=== PATIENT | male | born 2000 | race Caucasian/White ===

== ENCOUNTER 2019-07-06 06:36 | Day surgery (SDC) | payer OTHER, SELFPAY ==
[2019-06-29 15:16] VITALS: BMI 17.7
[2019-07-06] VITALS (18 sets, daily range): BP systolic 111–155; BP diastolic 57–98; PULSE 52–84; RESP 12–16; TEMP 36.1–37.4; O2SAT 95–100; BMI 19.1
[2019-07-06] MEDS: LACTATED RINGERS 1,000 ML 42 ML IV (07:20)
--- NOTE | 2019-07-06 07:33 | PM.PREOP ---
Pre-operative Note Interval Note History & Physical reviewed/Exam performed by Physician: Yes Changes to H&P: No
[2019-07-06] MEDS: CEFAZOLIN 2 GM/100 ML FROZ.PIGGY IV (07:44)
--- NOTE | 2019-07-06 08:12 | SUR.OPER ---
Supine on padded OR bed, head on pillow, arms secured on padded arm boards at <90 degrees abduction, legs uncrossed, safety belt at thigh, tape over blanket over lower legs.
[2019-07-06] MEDS: BUPIVACAINE 0.5% (PF) VIAL 30 ML INJ (08:19)
[2019-07-06] MEDS: LACTATED RINGERS 1,000 ML 100 ML IV (08:55)
--- NOTE | 2019-07-06 09:34 | PM.OP.1 ---
Operative Date/Time/Diagnoses Date of procedure: 07/06/19 Time of procedure: 09:34 Pre-op diagnosis: traumatic right inguinal hernia Post-op diagnosis: same Procedure & Clinicians Procedure: Open right inguinal hernia repair Same procedure as scheduled: Yes Indications: 19-year-old male that was involved skateboarding accident where he sustained a traumatic right inguinal hernia 2 weeks ago. He presents today for open right inguinal hernia repair with mesh. Surgeon: Kael Aguilar Click Yes if Unassisted: Yes Anesthesia Type: General Operative Notes Findings: Fat containing direct right inguinal hernia with extension into the scrotum Prosthetic devices, grafts, tissues, transplants, or devices: proloop mesh Estimated Blood Loss (mL): 10 Procedure in detail: The patient was brought to the operating room and placed supine on the table. Bilateral lower extremity compression devices were applied. General anesthesia was induced and he was intubated with LMA. He was then prepped and draped in usual sterile fashion. Time-out was performed ensure the correct patient procedure necessary equipment within the operating room. The external inguinal ring was identified as well as the anterior superior iliac spine. The incision was made in the crease of the right groin from the pubic tubercle towards the ASIS after infiltration of the skin with 0.25% Bupivicaine. The subcutaneous tissues were divided. The external oblique aponeurosis was identified and opened along the direction of its fibers. As result of his previous trauma the tissues were significantly inflamed and distorted. The cord was bluntly dissected from the external oblique aponeurosis near the pubic tubercle. The cord was completely taken off of the floor and encircled with a Dave drain and swept out of the way for protection. There was a significant traumatic defect within the floor of the inguinal canal with fat extending through it and protruding down into the scrotum. This fat was mobilized and reduced back into the floor. The cord was palpated and the vas deferens and the testicular vessels were identified and protected. The cremasteric fibers of the cord were skeletonized examining for a indirect hernia and none was present. I next selected of medium sized Pro Loop mesh which was anchored to the periosteum of the pubic tubercle using 0 Prolene suture. The inferior edge was then fashioned to the shelving edge of the inguinal ligament using a running 0 Prolene suture. The superior edge of mesh was then anchored in interrupted fashion to the conjoined tendon using 0 Prolene suture. The tails were then wrapped around the cord and the internal ring was recreated loosely so that the cord remained mobile. The tails of the mesh were then tucked under the external oblique aponeurosis. The wound was irrigated and found to be hemostatic. The external oblique was then closed in a running fashion using 3 0 Vicryl suture. The subcutaneous tissues were reapproximated using 4 O Vicryl the skin was closed with the running 4 0 Monocryl followed by the application of Dermabond. At the end of the operation ensure that the the both testicles were within the scrotum. Patient emerged from general anesthesia was awakened extubated and transferred to the postoperative care unit in stable condition Complications: none Condition: stable Disposition: PACU
[2019-07-06] MEDS: HYDROMORPHONE 2 MG INJ 0.5 MG IV ×4 (09:51→10:11)
[2019-07-06] MEDS: fentaNYL 100 MCG/2 ML INJ 50 MCG IV ×2 (10:17→10:25)
[2019-07-06] MEDS: OXYCODONE/ACETAMINOPHEN 5/325 TABLET 1 TAB PO ×2 (10:18→11:08)
--- NOTE | 2019-07-06 10:26 | SUR.PHASEI ---
report given to Hiram Roberts RN
--- NOTE | 2019-07-06 11:45 | SUR.PHASEII ---
[facility]. Able to void. Reported pain 6/10.
--- NOTE | 2019-07-06 15:22 | SUR.PHASEII ---
[id number] Pt's mom found assisting patient to dress. Requested to discharge. Pt stated pain improved after void. Discharge instructions reviewed.
== END 2019-07-06 12:00 | disposition home or self-care (01) ==
PROVIDERS: PCP Family Medicine; Visit Provider Surgery
PROC: (CPT 49505; principal; 2019-07-06 07:45)
DX: K40.90 Unilateral inguinal hernia, without obstruction or gangrene, not specified as recurrent (principal)
CPT/HCPCS: 49505; C1781; J0690; J1100; J1170; J1885; J2405; J2704; J3010

== ENCOUNTER 2019-07-10 23:32 | Emergency (ER) | payer OTHER, SELFPAY ==
[2019-07-10 23:44] VITALS: BP 142/109; PULSE 84; RESP 24; TEMP 37.1; O2SAT 100
--- NOTE | 2019-07-10 23:58 | DI.RAD.S_ITS ---
PROCEDURE: XR ABDOMEN MIN 2V INDICATIONS: no BM x 5 days, s/p inguinal hernia repair TECHNIQUE: 2 views of the abdomen were acquired. COMPARISON: [facility], CT, CT ABDOMEN PELVIS W CON, 07/11/2019, 2:18. FINDINGS: Surgical changes and devices: None. Bowel: No pneumoperitoneum. A prominent amount of stool can be seen within the colon. Scattered air-fluid levels are seen, without pathologic or differential air-fluid levels. Soft tissues: No masses; visualized solid organ contours appear normal in size. No suspicious abdominal calcifications. Bones: No suspicious bony abnormalities. IMPRESSION: A prominent amount of stool is seen within the colon. This is consistent with the given clinical history of constipation. Scattered air-fluid levels are seen, without pathologic or differential air-fluid levels to suggest a small bowel obstruction. Dictated by: Vimal Hernandez M.D. on 07/11/2019 at 7:21 Approved by: Vimal Hernandez M.D. on 07/11/2019 at 7:22
[2019-07-11 00:46] VITALS: BP 137/105; PULSE 94; RESP 20; O2SAT 95
--- NOTE | 2019-07-11 00:57 | ED_ITS ---
HPI - Abdominal Pain General Chief Complaint: Abdominal Pain Stated Complaint: no bowel movement since inguinal hernia ashley garcia Time Seen by Provider: 07/10/19 23:57 Source: patient Mode of arrival: ambulatory Limitations: no limitations History of Present Illness HPI narrative: 19-year-old male comes to the emergency department with complaint of increasing abdominal pain. Patient had right inguinal hernia repair after traumatic hernia. His surgery was on 07/06. Patient states that he was having pain pretty much immediately after his surgery which has been increasing. He has not had fevers or chills. He has not been vomiting or felt nauseated. He has not had a bowel movement but he has been passing flatus. He denies any issues with urination. There has not appreciate signs infection at his incision. He was taking oxycodone which he has run out of. Sounds like he just started taking some MiraLax in the last 24 hours to help him have a bowel movement. He is otherwise healthy, had a prior wrist surgery but denies any other surgical history. No tobacco, no alcohol no illicit per patient. He is accompanied by his mother at bedside Related Data Previous Rx's Medication Instructions Recorded ibuprofen 600 mg PO Q6H PRN #60 cap 07/06/19 oxycodone 5 mg PO Q4-6H PRN #30 cap 07/06/19 ondansetron HCl 4 mg tablet 4 mg PO Q8-12H PRN #10 tab 07/07/19 meloxicam [Mobic] 7.5 mg PO DAILY #14 tab 07/11/19 oxycodone 5 mg PO Q4-6H PRN #10 tab 07/11/19 polyethylene glycol 3350 [Miralax] 8.5 gram PO DAILY PRN #119 gram 07/11/19 Allergies Allergy/AdvReac Type Severity Reaction Status Date / Time No Known Drug Allergies Allergy Verified 07/06/19 07:13 Review of Systems Review of Systems ROS Unobtainable: All systems reviewed & are unremarkable except as noted in HPI and below Constitutional Constitutional: Denies chills, Denies fever(s) and Denies lethargy Cardiovascular Cardiovascular: Denies chest pain and Denies dyspnea Respiratory Respiratory: Denies dyspnea Gastrointestinal Gastrointestinal: Reports abdominal pain, Reports change in bowel habits, Reports constipation, Denies excessive flatus (patient is continuing to have flatus), Denies diarrhea, Denies nausea and Denies vomiting Genitourinary Genitourinary: Denies hematuria, Denies flank pain, Reports scrotal swelling, Reports testicular pain, Denies urinary frequency, Denies urinary hesitancy, Denies urinary incontinence and Denies urinary urgency Musculoskeletal Musculoskeletal: Denies back pain Integumentary/Breasts Skin/Breast: Reports unusual bruising (no increasing bruising since surgery) [facility] Medical History Anxiety (Acute) Chest pain (Acute) Constipation (Acute) Cough (Acute) Depression (Acute) Former smoker (Acute) Groin injury (Acute ~06/2019) Heart murmur (Acute) History of migraine (Acute) Nausea (Acute) Surgical History History of surgery on wrist (Acute) Family History Mother Cancer History of heart disease Social History household members: none Smoking Status: Never smoker Social History household members: none Smoking Status: Never smoker Exam Narrative Exam Narrative: GENERAL: Alert and oriented x three, thin, well-appearing male in moderate distress. Patient has trouble finding a position of comfort. HEENT: Head normocephalic, atraumatic, EOMI, pupils reactive, face symmetric, moist mucous membranes NECK: Supple, full range of motion CARDIOVASCULAR: Regular rate and rhythm without murmurs, rubs or gallops. RESPIRATORY: Breath sounds equal bilaterally, no wheezes rales or rhonchi. ABDOMEN: Soft, generalized tenderness. Patient is not significantly distended but does have guarding. Normoactive bowel sounds all 4 quadrants. No rigidity, no mass : No CVA tenderness. Male: normal external examination except for suprapubic swelling, patient has ecchymosis of the suprapubic area and bilateral testicles, no penile discharge or lesions, penis is non-tender, left testicle is non- tender, right testicle is tender and appears slightly more swollen, cremasteric reflex intact, no inguinal hernias noted, incision appears clean, dry and intact. No erythema, no drainage. EXTREMITIES: Normal range of motion, no clubbing or edema. Neurovascularly intact NEUROLOGICAL: Cranial nerves II through XII grossly intact. Moving all extremities normally. SKIN: Warm, dry, no petechiae, no rashes or lesions. Initial Vital Signs Initial Vital Signs: Vital Signs Temperature 98.7 F 07/10/19 23:44 Pulse Rate 84 07/10/19 23:44 Respiratory Rate 24 07/10/19 23:44 Blood Pressure 142/109 H 07/10/19 23:44 Pulse Oximetry 100 07/10/19 23:44 Course Orders Ordered: ED Orders 07/10/19 23:58 XR abdomen min 2V Stat 07/11/19 01:09 CT abdomen pelvis w con Stat 07/11/19 01:25 Complete Blood Count AUTO DIFF Stat Comprehensive Metabolic Panel Stat Lipase Stat Discontinued Medications Hydromorphone HCl (Dilaudid) 1 mg IV NOW ONE Stop: 07/11/19 01:36 Last Admin: 07/11/19 01:54 Dose: 1 mg Documented by: HARITHA Hydromorphone HCl (Dilaudid) 1 mg IV NOW ONE Stop: 07/11/19 02:11 Last Admin: 07/11/19 02:14 Dose: 1 mg Documented by: MONTY Hydromorphone HCl (Dilaudid) 1 mg IV NOW ONE Stop: 07/11/19 04:22 Last Admin: 07/11/19 04:31 Dose: 1 mg Documented by: HARITHA Sodium Chloride (Normal Saline 0.9%) 1,000 mls @ 1,000 mls/hr IV BOLUS ONE Stop: 07/11/19 02:08 Last Infusion: 07/11/19 02:55 Dose: 0 mls/hr Documented by: Admin: 07/11/19 01:30 Dose: 1,000 mls/hr Documented by: HARITHA Sodium Chloride (Normal Saline 0.9%) 1,000 mls @ 150 mls/hr IV CONT LOIDA Last Infusion: 07/11/19 05:30 Dose: 0 mls/hr Documented by: Infusion: 07/11/19 04:28 Dose: 0 mls/hr Documented by: Admin: 07/11/19 03:05 Dose: 150 mls/hr Documented by: HARITHA Ketorolac Tromethamine (Toradol) 30 mg IV NOW ONE Stop: 07/11/19 01:10 Last Admin: 07/11/19 01:30 Dose: 30 mg Documented by: HARITHA Lorazepam (Ativan) 1 mg IV NOW ONE Stop: 07/11/19 02:33 Last Admin: 07/11/19 02:45 Dose: 1 mg Documented by: HARITHA Magnesium Citrate (Magnesium Citrate) 300 ml PO NOW ONE Stop: 07/11/19 04:22 Last Admin: 07/11/19 04:31 Dose: 300 ml Documented by: HARITHA Oxycodone/Acetaminophen (Percocet 5/325) 1 tab PO NOW ONE Stop: 07/11/19 05:34 Last Admin: 07/11/19 05:42 Dose: 1 tab Documented by: MONTY Sodium Biphosphate/Sodium Phosphate (Fleet Enema) 1 each DC NOW ONE Stop: 07/11/19 04:22 Last Admin: 07/11/19 04:28 Dose: 1 each Documented by: HARITHA Vital Signs Vital signs: Vital Signs - 8 hr 07/10/19 23:44 07/11/19 00:46 07/11/19 01:32 Temperature 98.7 F Pulse Rate 84 94 H 67 Respiratory Rate 24 20 20 Blood Pressure 142/109 H Blood Pressure [Left Arm] 137/105 H 142/67 H Pulse Oximetry 100 95 94 07/11/19 02:52 07/11/19 04:10 07/11/19 05:50 Temperature 98.7 F Pulse Rate 63 69 63 Respiratory Rate 21 18 18 Blood Pressure 145/79 H Blood Pressure [Left Arm] 147/93 H 146/81 H Pulse Oximetry 100 100 95 MDM - Abdominal Pain Lab Data Attestation: I reviewed the patient's lab results. Result diagrams: 07/11/19 01:25 07/11/19 01:25 Labs: Lab Results 07/11/19 07/11/19 Range/Units 01:25 01:25 WBC 9.1 (4.5-11.0) X10^3/uL RBC 5.16 (4.5-5.9) X10^6/uL Hgb 15.8 (13.5-17.5) g/dL Hct 44.4 (41-53) % MCV 86.0 (80-100) fL MCH 30.6 (26-34) PG MCHC 35.6 (30-36) % RDW 12.7 (11.6-14.8) % Plt Count 329 (150-400) X10^3/uL Neut % (Auto) 65.4 (50-75) % Lymph % (Auto) 22.2 L (25-40) % [place] % (Auto) 9.3 (3-14) % Eos % (Auto) 2.8 (2-4) % Baso % (Auto) 0.3 (0-2) % Neut # (Auto) 5900 (5810-0822) /uL Lymph # (Auto) 2000 (6469-3284) /uL [place] # (Auto) 800 (0-900) /uL Eos # (Auto) 300 (0-450) /uL Baso # (Auto) 0 (0-100) /uL Sodium 140 (137-145) mmol/L Potassium 3.7 (3.4-5.1) mmol/L Chloride 101 (98-107) mmol/L Carbon Dioxide 29 (22-32) mmol/L BUN 18 (9-20) mg/dL Creatinine 0.70 (0.66-1.25) mg/dL Estimated GFR > 60.0 (>60) mL/min BUN/Creatinine Ratio 25.7 H (6-22) Glucose 99 (70-100) mg/dL Calcium 10.0 (8.4-10.2) mg/dL Total Bilirubin 1.1 (0.2-1.3) mg/dL AST 29 (17-59) IU/L ALT 15 L (21-72) IU/L Alkaline Phosphatase 66 (38-126) U/L Total Protein 8.3 H (6.3-8.2) g/dL Albumin 4.8 (3.5-5.0) g/dL Globulin 3.5 (1.7-4.1) g/dL Albumin/Globulin Ratio 1.4 (1.0-2.8) Lipase 57 (23-300) U/L Point of care testing: Urine Dip Bedside Urine Glucose Negative Bedside Urine Bilirubin - Negative Bedside Urine Ketone - Negative Urine Specific [place] 1.010 Bedside Urine Occult Blood - Negative Bedside Urine pH 8.5 Bedside Urine Protein +/- 15 Bedside Urine Urobilinogen +/- 1mg Bedside Urine Nitrite - Negative Bedside Urine Leukocytes - Negative Esterase Imaging Data Abdominal x-ray: My impression: no free air noted, air fluid levels throughout, patient appears to have stool on left side and vault. CT scan - abdomen: Radiologist's impression: Large stool burden in the descending and sigmoid colon with fluid-filled transverse and descending colon. Bowel obstruction. No pneumatosis, free air or fluid bladder is thin-walled adequately distended. Amount of air inflammation in the right inguinal canal consistent with recent surgery. Mildly prominent right inguinal lymph nodes. MDM Narrative Medical decision making narrative: Patient is quite uncomfortable on exam. He did quite bit of abdominal pain postsurgically immediately and states that it has not improved and worsened somewhat. He has had no bowel movements in the past 5 days since surgery. He is passing gas he has not been actively vomiting patient did run out of oxycodone in the last 24 hours and has not been able to control his pain at home. On x-ray he does appear to have air-fluid levels concerning for possible obstruction, he has quite a bit of ecchymosis of the testicles but they are not actively tender is abdominal. May be constipation but fine for imaging was CT to evaluate for obstruction versus constipation or infection in the abdomen. Patient given Toradol for pain and re-evaluated. No improvement, given dilaudid and ativan with improvement in pain. Patient had 800cc out immediately after CT, bladder scan after post void is, 325cc. Patient was able to urinate an additional 500cc later. CT find a large amount of stool, discussed with Dr. Aguilar who performed patient surgery on July 06. We discussed patient eat some additional bowel care, plan for enema in the department. He is currently on Colace and senna. Will add MiraLax daily. Discussed giving him a limited script of oxycodone although this will not help him with constipation. Bottle of magnesium citrate. He has been taking naproxen with minimal improvement and discussed adding Mobic instead. Plan for short-term follow-up. Discussed with patient and mother at bedside, patient is willing to try the enema, discussed medication changes and signs and symptoms to watch for emergently. We also discussed limiting his narcotic intake will help decrease his constipation which will help improve his abdominal pain. patient and mother both expressed understanding. Discharge Plan Departure Patient Disposition: Home Clinical Impression: S/P inguinal hernia repair Constipation Qualifiers: Constipation type: drug induced constipation Qualified Code(s): K59.03 - Drug induced constipation Abdominal pain Qualifiers: Abdominal location: unspecified location Qualified Code(s): R10.9 - Unspecified abdominal pain Discharge Date/Time: 07/11/19 05:51 Instructions: DI for Constipation Activity Restrictions/Additional Instructions: Follow up with Dr. Aguilar this week, call Friday to set up follow up. Continue senna and dulcolax as prescribed. Take miralax once daily. Make sure you are hydrating daily and drinking at least 8-10 glasses of water daily. Take magnesium citrate at home, start with 1/2 bottle and waiting 3-4 hours, if no change drink the second half of the the bottle. Continue with Tylenol, you may take 1000mg every 8 hours as needed for pain. Take mobic 7.5mg every 12 hours as needed for pain. Do not take ibuprofen, naproxen or NSAIDs with this medication. You may take Tylenol with this medication. Take oxycodone for breakthrough pain as needed. This medication will make your constipation worse. Return for fevers greater than 100.4F, persistent vomiting, if you are not having bowel movements and not passing gas, worsening pain, inability to urinate, passing out, new chest pain, shortness of breath or other new or concerning symptoms. Prescriptions: New meloxicam [Mobic] 7.5 mg tablet 7.5 mg PO DAILY Qty: 14 RF: 0 oxycodone 5 mg tablet 5 mg PO Q4-6H PRN (Reason: pain) Qty: 10 RF: 0 polyethylene glycol 3350 [Miralax] 17 gram/dose powder 8.5 gram PO DAILY PRN (Reason: constipation) Qty: 119 RF: 0 No Action ondansetron HCl [Zofran] 4 mg tablet 4 mg PO Q8-12H PRN (Reason: Nausea) Qty: 10 RF: 0 ibuprofen 200 mg capsule 600 mg PO Q6H PRN (Reason: pain) Qty: 60 RF: 0 oxycodone 5 mg capsule 5 mg PO Q4-6H PRN (Reason: pain) Qty: 30 RF: 0 Referrals: Kael Aguilar MD [Physician] - Ariana Billings DO [Primary Care Provider] -
--- NOTE | 2019-07-11 01:09 | DI.CT.S_ITS ---
PROCEDURE: CT ABDOMEN PELVIS W CON INDICATIONS: no BM x 5 days, s/p inguinal hernia, + flatus, airfluid leve TECHNIQUE: After the administration of intravenous contrast, 5 mm thick sections acquired from the diaphragm to the symphysis. 5 mm coronal and sagittal reformats were acquired. For radiation dose reduction, the following was used: automated exposure control, adjustment of mA and/or kV according to patient size. COMPARISON: [facility], CR, XR ABDOMEN MIN 2V, 07/11/2019, 0:25. FINDINGS: Image quality: There is streak artifact seen. ABDOMEN: Lung bases: Lung bases are clear. Heart size is normal. Solid organs: Liver is normal in size and enhancement. Gallbladder wall is not thickened. Biliary system is non dilated. Pancreas enhances normally. Spleen is normal in size and enhancement. No adrenal nodules. Kidneys demonstrate normal size and enhancement, without hydronephrosis. A 1 mm nonobstructing stone can be seen within the left kidney, as on series 2 image 29. Peritoneum and bowel: There is a prominent amount of stool seen within the colon. No dilated loops of small bowel are seen. No free air or significant free fluid can be seen. Incidental note is made of a normal-appearing appendix. Nodes and vessels: No retroperitoneal or mesenteric adenopathy by size criteria. Aorta and inferior vena cava are normal in size. Miscellaneous: No ventral hernias. PELVIS: Genitourinary: Bladder wall thickness is normal. The urinary bladder is prominent in size. Miscellaneous: There is soft tissue swelling and minimal gas is seen involving the anterior wall of the pelvis. Swelling is seen along the right inguinal canal. Bones: No suspicious bony lesions. No vertebral body compression fractures. IMPRESSION: There is a prominent amount of stool seen within the colon, which is consistent with the given clinical history of constipation. Recent postoperative change of the anterior pelvis. There is swelling seen along the right inguinal canal. Please correlate with patient history. Incidental note is made of: 1 mm nonobstructing left kidney stone Normal appendix Note: No significant discrepancy from the preliminary report. Dictated by: Vimal Hernandez M.D. on 07/11/2019 at 7:15 Approved by: Vimal Hernandez M.D. on 07/11/2019 at 7:19
[2019-07-11] MEDS: SODIUM CHLORIDE 0.9% 1,000 ML 1000 ML IV (01:30)
[2019-07-11] MEDS: KETOROLAC 60 MG/2 ML VIAL 30 MG IV (01:30)
[2019-07-11 01:32] VITALS: BP 142/67; PULSE 67; RESP 20; O2SAT 94
[2019-07-11 01:43] LABS: Add Manual Diff / Slide Review NO; Basophils Absolute Auto 0 /uL (0-100); Basophils Percent Auto 0.3 % (0-2); Eosinophils Absolute Auto 300 /uL (0-450); Eosinophils Percent Auto 2.8 % (2-4); Hematocrit 44.4 % (41-53); Hemoglobin 15.8 g/dL (13.5-17.5); Lymphocytes Absolute Auto 2000 /uL (1100-4500); Lymphocytes Percent Auto 22.2 % (25-40); Mean Corpuscular HGB Conc 35.6 % (30-36); Mean Corpuscular Hemoglobin 30.6 PG (26-34); Monocytes Absolute Auto 800 /uL (0-900); Monocytes Percent Auto 9.3 % (3-14); Neutrophils Absolute Auto 5900 /uL (1500-7000); Neutrophils Percent Auto 65.4 % (50-75); Platelet Count 329 X10^3/uL (150-400); Red Blood Cell Count 5.16 X10^6/uL (4.5-5.9); Red Cell Distribution Width 12.7 % (11.6-14.8); White Blood Cell Count 9.1 X10^3/uL (4.5-11.0)
[2019-07-11 01:45] LABS: Alanine Aminotransferase 15 IU/L (21-72); Albumin 4.8 g/dL (3.5-5.0); Albumin Globulin Ratio 1.4 (1.0-2.8); Alkaline Phosphatase 66 U/L (38-126); Aspartate Aminotransferase 29 IU/L (17-59); BUN Creatinine Ratio 25.7 (6-22); Bilirubin Total 1.1 mg/dL (0.2-1.3); Blood Urea Nitrogen 18 mg/dL (9-20); Carbon Dioxide 29 mmol/L (22-32); Chloride 101 mmol/L (98-107); Estimated Glomerular Filt Rate > 60.0 mL/min (>60); Globulin 3.5 g/dL (1.7-4.1); Glucose 99 mg/dL (70-100); HEMOLYSIS < 15 (0-50); Lipase 57 U/L (23-300); Potassium 3.7 mmol/L (3.4-5.1); Sodium 140 mmol/L (137-145); Total Protein 8.3 g/dL (6.3-8.2)
[2019-07-11] MEDS: HYDROMORPHONE 1 MG INJ IV ×3 (01:54→04:31)
--- NOTE | 2019-07-11 02:19 | PC.NURSE ---
Pt curled on side clutching abd, rates pain 9/10. additional 1 mg dilaudid given IV per order. Pt now to CT.
[2019-07-11] MEDS: LORazepam 2 MG/ML INJ 1 MG IV (02:45)
[2019-07-11 02:52] VITALS: BP 147/93; PULSE 63; RESP 21; O2SAT 100
[2019-07-11] MEDS: SODIUM CHLORIDE 0.9% 1,000 ML 150 ML IV (03:05)
[2019-07-11 04:10] VITALS: BP 146/81; PULSE 69; RESP 18; O2SAT 100
[2019-07-11] MEDS: FLEETS ENEMA 1 EACH PR (04:28)
[2019-07-11] MEDS: MAGNESIUM CITRATE 300 ML SOLUTION PO (04:31)
[2019-07-11] MEDS: OXYCODONE/ACETAMINOPHEN 5/325 TABLET 1 TAB PO (05:42)
[2019-07-11 05:50] VITALS: BP 145/79; PULSE 63; RESP 18; TEMP 37.1; O2SAT 95
== END 2019-07-11 05:51 | disposition home or self-care (01) ==
PROVIDERS: Emergency Provider Emergency Medicine; PCP Family Medicine
DX: Z98.890 Other specified postprocedural states (principal); R10.9 Unspecified abdominal pain
CPT/HCPCS: 36591; 51798; 74019; 74177; 80053; 81003; 83690; 85025; 96361; 96374; 96375; 96376; 99285; J1170; J1885; J2060; Q9967

== ENCOUNTER 2019-07-16 19:22 | Inpatient (IN) | payer OTHER, SELFPAY ==
[2019-07-16 19:25] VITALS: BP 154/89; PULSE 78; RESP 20; TEMP 36.9; O2SAT 98
--- NOTE | 2019-07-16 19:36 | DI.US.S_ITS ---
PROCEDURE: US SCROTUM INDICATIONS: LEFT SCROTAL/TESTICULAR PAIN TECHNIQUE: Real-time scanning was performed of the scrotum and testicles, with image documentation. Color and pulse Doppler interrogation was performed of both testicles. COMPARISON: None. FINDINGS: There is bilateral testicular hyperemia. Right: Testicle is normal in size at 5.3 x 3.2 x 2.8 cm, and homogenous in echotexture. Epididymis is normal in overall size and morphology. No hydrocele or varicoceles. Overlying scrotal skin is normal in thickness. Left: Testicle is normal in size at 5.0 x 3.7 x 2.6 cm, and homogeneous in echotexture. Epididymis is heterogeneous. No hydrocele or varicoceles. Overlying scrotal skin is normal in thickness. Doppler: Color and pulse Doppler demonstrate normal and symmetric arterial flow in both testicles. Multiple nonspecific right inguinal fluid collections, measuring 2.7 x 2.0 by 0.7 cm (simple appearance), and 2.4 x 1.9 x 1.5 cm complex fluid collection or hematoma for which cannot exclude superimposed infection/abscess. IMPRESSION: Hyperemic appearance of both testicles raise the possibility of orchitis however technically indeterminate. Recommend correlation with urinalysis data. Nonspecific heterogeneous appearance of the left epididymal head which could reflect epididymitis although nonspecific finding. Multiple right inguinal simple and complex fluid collections with differential as above. Please correlate clinically Dictated by: Chito Ely M.D. on 07/16/2019 at 21:33 Approved by: Chito Ely M.D. on 07/16/2019 at 21:36
--- NOTE | 2019-07-16 20:38 | ED.MALEGU ---
HPI - Male Genitourinary General Chief complaint: Urogenital-Male Stated complaint: hernia surgery,states pain in left nut Time Seen by Provider: 07/16/19 20:36 Source: patient and family Mode of arrival: ambulatory Limitations: no limitations History of Present Illness HPI Narrative: 19M non smoker with benign medical history presents with family member and the chief complaint of a severe, sudden onset left testicular pain in the absence of injury which started today at noon. His pain is worse with motion and improves with rest. He has had subjective fever and chills. He has had nausea but no vomiting. He is not dizzy nor weak or lightheaded. His oral pain meds from a recent surgery are not working. He is sexually active but has not been for the past few months. He denies dysuria, frequency or urgency. July 06 he had an open repair of a right inguinal hernia. He has been having bowel movements and passing gas without difficulty. MD Complaint: testicle pain Onset (ago): hour(s) Duration: constant Location: left testicle Severity: moderate Quality: aching Relieving factors: rest Exacerbating factors: movement Associated symptoms: Reports nausea/vomiting Related Data Sexually active: Yes Previous Rx's Medication Instructions Recorded ibuprofen 600 mg PO Q6H PRN #60 cap 07/06/19 oxycodone 5 mg PO Q4-6H PRN #30 cap 07/06/19 ondansetron HCl 4 mg tablet 4 mg PO Q8-12H PRN #10 tab 07/07/19 meloxicam [Mobic] 7.5 mg PO DAILY #14 tab 07/11/19 polyethylene glycol 3350 [Miralax] 8.5 gram PO DAILY PRN #119 gram 07/11/19 Allergies Allergy/AdvReac Type Severity Reaction Status Date / Time No Known Drug Allergies Allergy Verified 07/06/19 07:13 Review of Systems Constitutional Constitutional: Reports chills, Denies fatigue, Reports fever(s), Denies frequent falls, Denies lethargy and Denies weakness Eyes Eyes: Denies change in vision, Denies eye discharge, Denies irritation and Denies loss of vision ENT Ears, Nose, Mouth, and Throat: Denies change in voice, Denies dizziness, Denies neck pain, Denies sore throat and Denies throat swelling Cardiovascular Cardiovascular: Denies chest pain, Denies irregular heart rhythm, Denies lightheadedness, Denies palpitations, Denies dyspnea, Denies dyspnea on exertion and Denies orthopnea Respiratory Respiratory: Denies cough, Denies dyspnea, Denies dyspnea on exertion and Denies wheezing Gastrointestinal Gastrointestinal: Denies abdominal pain, Denies change in bowel habits, Denies diarrhea, Denies nausea and Denies vomiting Genitourinary Genitourinary: Denies hematuria, Reports genital pain, Denies flank pain, Denies urinary incontinence and Denies urinary urgency Musculoskeletal Musculoskeletal: Denies back pain, Denies muscle weakness, Denies neck pain, Denies numbness and Denies tingling Integumentary/Breasts Skin/Breast: Denies pruritus, Denies erythema, Denies rash and Denies wounds Neurologic Neurologic: Denies behavioral changes, Denies confusion, Denies dizziness, Denies frequent falls, Denies loss of vision, Denies numbness, Denies tingling and Denies weakness Psychiatric Psychiatric: Denies anxiety, Denies behavioral changes, Denies confusion, Denies depression, Denies homicidal ideation and Denies suicidal ideation Endocrine Endocrine: Denies fatigue, Denies flushing and Denies palpitations Hematologic/Lymphatic Hematologic/Lymphatic: Denies easy bruising Allergic/Immunologic Allergic/Immunologic: Denies urticaria, Denies throat swelling and Denies wheezing PFSH Family History Mother Cancer History of heart disease Social History household members: none Smoking Status: Never smoker Exam Narrative Exam Narrative: GENERAL: [19] year old patient appears stated age. Well-nourished, well-developed patient, in moderate distress. HEAD: Atraumatic. Normocephalic. EYES: Pupils equal round and reactive. Extraocular motions intact. No scleral icterus. No injection or drainage. ENT: Nose without bleeding, purulent drainage. Throat without erythema, tonsillar hypertrophy or exudate. Airway patent. NECK: Trachea midline. Non tender CARDIOVASCULAR: Regular rate and rhythm without murmurs, gallops, or rubs. RESPIRATORY: Clear to auscultation. Breath sounds equal bilaterally. No wheezes, rales, or rhonchi. GASTROINTESTINAL: Abdomen soft, mild tenderness in the right inguinal region, incision is clean, dry and intact, : Severe left testicular pain, no swelling, redness, induration or any external manifestation injury or illness EXTREMITIES: No edema or joint tenderness. BACK: Nontender without deformity or crepitance. No flank tenderness. NEURO: AOx3. SKIN: No rash or erythema of visible areas Initial Vital Signs Initial Vital Signs: Vital Signs Temperature 98.4 F 07/16/19 19:25 Pulse Rate 78 07/16/19 19:25 Respiratory Rate 20 07/16/19 19:25 Blood Pressure 154/89 H 07/16/19 19:25 Pulse Oximetry 98 07/16/19 19:25 Course Orders Ordered: ED Orders 07/16/19 19:36 US scrotum Stat 07/16/19 21:36 CT abdomen pelvis w con Stat 07/16/19 21:50 Basic Metabolic Panel Stat Complete Blood Count AUTO DIFF Stat Lactate (Lactic Acid) Stat 07/16/19 22:00 Blood Culture Stat 07/17/19 02:48 Urine Chlamydia Gonorrhea PCR Stat Acetaminophen (Tylenol) 650 mg PO Q6HR PRN PRN Reason: As Needed for Fever/Mild Pain Al Hydrox/Mg Hydrox/Simethicone (Maalox Plus) 30 ml PO Q6HR PRN PRN Reason: Dyspepsia Bisacodyl (Dulcolax) 10 mg NC DAILY PRN PRN Reason: Constipation Calcium Carbonate (Tums) 1,000 mg PO Q4HR PRN PRN Reason: Dyspepsia Docusate Sodium (Colace) 100 mg PO BID LOIDA Hydromorphone HCl (Dilaudid) 1 mg IV Q4H PRN PRN Reason: Pain, Severe (7-10) Hydromorphone HCl (Dilaudid) 0.5 mg IV Q4H PRN PRN Reason: Pain, Moderate (4-6) Levofloxacin (Levaquin) 500 mg in 100 mls @ 100 mls/hr IV Q24H [facility] Ceftriaxone Sodium/Dextrose (Rocephin) 2 gm in 50 mls @ 100 mls/hr IV Q24H [facility] Ketorolac Tromethamine (Toradol) 30 mg IV Q6HR [facility] Stop: 07/22/19 03:40 Naloxone HCl (Narcan) 0.2 mg IV Q2MIN PRN PRN Reason: Opiate Reversal Ondansetron HCl (Zofran) 4 mg IV Q4HR PRN PRN Reason: Nausea And Vomiting Last Admin: 07/16/19 21:48 Dose: 4 mg Documented by: TAVO Ondansetron HCl (Zofran) 4 mg IV Q8HR PRN PRN Reason: Nausea And Vomiting Polyethylene Glycol (Miralax) 8.5 gm PO DAILY PRN PRN Reason: constipation Sennosides (Senna) 17.2 mg PO BEDTIME LOIDA Discontinued Medications Hydromorphone HCl (Dilaudid) 1 mg IV NOW ONE Stop: 07/16/19 21:36 Last Admin: 07/16/19 21:48 Dose: 1 mg Documented by: TAVO Hydromorphone HCl (Dilaudid) 1 mg IV NOW ONE Stop: 07/16/19 22:36 Last Admin: 07/16/19 22:39 Dose: 1 mg Documented by: TAVO Hydromorphone HCl (Dilaudid) 1 mg IV NOW ONE Stop: 07/16/19 23:55 Last Admin: 07/17/19 00:20 Dose: 1 mg Documented by: TAVO Hydromorphone HCl (Dilaudid) 1 mg IV NOW ONE Stop: 07/17/19 01:24 Last Admin: 07/17/19 01:28 Dose: 1 mg Documented by: TAVO Hydromorphone HCl (Dilaudid) 0.5 mg IV Q6HR PRN PRN Reason: Pain, Moderate (4-6) Hydromorphone HCl (Dilaudid) 1 mg IV Q6HR PRN PRN Reason: Pain, Severe (7-10) Sodium Chloride (Normal Saline 0.9%) 1,000 mls @ 1,000 mls/hr IV BOLUS ONE Stop: 07/16/19 22:34 Last Infusion: 07/16/19 23:17 Dose: 0 mls/hr Documented by: Admin: 07/16/19 21:48 Dose: 1,000 mls/hr Documented by: TAVO Levofloxacin (Levaquin) 500 mg in 100 mls @ 100 mls/hr IV NOW ONE Stop: 07/16/19 22:34 Last Infusion: 07/16/19 23:06 Dose: 0 mls/hr Documented by: Admin: 07/16/19 21:48 Dose: 100 mls/hr Documented by: KBROTEM Influenza Virus Vaccine (Flu Vaccine) 0.5 ml IM .ONCE ONE Stop: 07/17/19 03:51 Consultations Consultation #1: Call to Urology at the [facility]. The findings do not demonstrate any need for transfer or surgical intervention. Patient requires antibiotics and pain control and is very appropriate to stay locally Consultation #2: Called to hospitalist to relay findings. He is happy to admit to his service. A courtesy call to the patient's general surgeon to inform of the admission Vital Signs Vital signs: Vital Signs - 8 hr 07/16/19 23:19 07/17/19 02:55 Pulse Rate 85 57 L Respiratory Rate 19 16 Blood Pressure [Left Arm] 146/88 H 142/65 H Pulse Oximetry 98 98 MDM - Male Genitourinary Lab Data Result diagrams: 07/16/19 21:50 07/16/19 21:50 Labs: Lab Results 07/16/19 07/16/19 07/16/19 Range/Units 21:50 21:50 21:50 WBC 7.6 (4.5-11.0) X10^3/uL RBC 4.94 (4.5-5.9) X10^6/uL Hgb 15.2 (13.5-17.5) g/dL Hct 43.2 (41-53) % MCV 87.3 (80-100) fL MCH 30.7 (26-34) PG MCHC 35.1 (30-36) % RDW 12.4 (11.6-14.8) % Plt Count 343 (150-400) X10^3/uL Neut % (Auto) 59.8 (50-75) % Lymph % (Auto) 26.5 (25-40) % Polk % (Auto) 9.9 (3-14) % Eos % (Auto) 2.9 (2-4) % Baso % (Auto) 0.9 (0-2) % Neut # (Auto) 4500 (0993-9961) /uL Lymph # (Auto) 2000 (8696-2988) /uL Polk # (Auto) 700 (0-900) /uL Eos # (Auto) 200 (0-450) /uL Baso # (Auto) 100 (0-100) /uL Sodium 140 (137-145) mmol/L Potassium 3.8 (3.4-5.1) mmol/L Chloride 102 (98-107) mmol/L Carbon Dioxide 26 (22-32) mmol/L BUN 14 (9-20) mg/dL Creatinine 0.60 L (0.66-1.25) mg/dL Estimated GFR > 60.0 (>60) mL/min BUN/Creatinine Ratio 23.3 H (6-22) Glucose 102 H (70-100) mg/dL Lactate 1.5 (0.7-2.1) mmol/L Calcium 10.0 (8.4-10.2) mg/dL Urine Dip Bedside Urine Glucose Negative Bedside Urine Bilirubin - Negative Bedside Urine Ketone - Negative Urine Specific Flom 1.010 Bedside Urine Occult Blood - Negative Bedside Urine pH 6.0 Bedside Urine Protein - Negative Bedside Urine Urobilinogen - Negative Bedside Urine Nitrite - Negative Bedside Urine Leukocytes - Negative Esterase MDM Narrative Medical decision making narrative: 19-year-old male with recent right inguinal hernia repair presents with severe, sudden onset left testicle pain. Initially torsion considered but blood flow normal on ultrasound. Findings suggest orchitis. Patient has not been sexually active in a few months hence decision to use Levaquin initially. Also, ultrasound suggesting epididymitis. Abnormal findings noted on imaging in the right inguinal region are considered to be normal postoperative findings by both Urology and General surgery. Patient requires admission due to intractable testicular pain as evidence by multiple doses of IV pain medication Critical Care Time Critical Care Time Critical Care Time: Yes Total Critical Care Time: 45 Attestation: The high probability of a clinically significant, sudden or life threatening deterioration of the [] system(s) required my full and direct attention, intervention and personal management. The aggregate critical care time was [45] minutes. This time is in addition to time spent performing reported procedures but includes the following: [x] Data Review and interpretation [x] Patient assessment and monitoring of vital signs [x] Documentation [x] Medication orders and management Discharge Plan Departure Patient Disposition: Admitted as Observation Clinical Impression: Acute orchitis, Intractable pain Discharge Date/Time: 07/17/19 03:30 Admit Date/Time: 07/17/19 03:04 Admit Provider: Montez Valdez
--- NOTE | 2019-07-16 21:36 | DI.CT.S_ITS ---
PROCEDURE: CT ABDOMEN PELVIS W CON INDICATIONS: severe RLQ pain s/p hernia surgery, fever, chills TECHNIQUE: After the administration of oral and intravenous contrast, 5 mm thick sections acquired from the diaphragms to the symphysis. 5 mm thick coronal and sagittal reformats were performed. For radiation dose reduction, the following was used: automated exposure control, adjustment of mA and/or kV according to patient size. COMPARISON: [facility], CT, CT ABDOMEN PELVIS W CON, 07/11/2019, 2:18. FINDINGS: Image quality: Diagnostic. ABDOMEN: Lung bases: Lung bases are clear. Heart size is normal. Solid organs: The liver is normal in size. A small focus of low attenuation involving the left hepatic lobe along the falciform ligament is felt to represent a small focal area of fatty infiltration. No focal liver lesions are appreciated. A phrygian cap involving the gallbladder is present. No intrahepatic or extrahepatic biliary dilatation is evident. The spleen, adrenals, and pancreas appear to be within normal limits. The kidneys are normal in size. There is no hydronephrosis. A 3 mm nonobstructing mid left renal calculus is unchanged in position. No ureteral calculi are appreciated. Peritoneum and bowel: There may be a small hiatal hernia. Otherwise, the stomach is unremarkable. The small bowel loops are nondilated. A large amount of stool is seen within the colon. However, there is a short segment area of wall thickening involving the hepatic flexure (image 30, series 4). This was not apparent on the prior CT, compatible with an area of incomplete distention. What is felt to represent the appendix is normal in size and appearance. No free fluid, loculated fluid collection or free air is appreciated. Nodes and vessels: No retroperitoneal or mesenteric adenopathy. Aorta and inferior vena cava are normal in caliber. Bones: No acute fractures or suspicious osseous lesions. PELVIS: Genitourinary: Bladder wall thickness is normal. Miscellaneous: No inguinal hernias or adenopathy. No free fluid or loculated fluid collection is evident. There is soft tissue prominence of the right inguinal region with a small fluid collection identified and surrounding soft tissue edema. There is edema surrounding the right spermatic cord. There may be air and fluid within the upper portion of the right scrotal sac. It appears to be a right-sided hydrocele. Bones: No suspicious bony lesions. No acute pelvic fractures. IMPRESSION: 1. Edema and fluid surrounding the right spermatic cord within the right inguinal region may be postoperative. Clinical correlation to exclude a developing scrotal abscess or right inguinal canal abscess is recommended. 2. Large amount of stool within the colon is suggestive of constipation. Please correlate clinically. 3. No bowel obstruction. Note: The preliminary report provided by [employer] is concordant with the final report. Dictated by: Glen Howell M.D. on 07/17/2019 at 6:59 Approved by: Glen Howell M.D. on 07/17/2019 at 7:05
[2019-07-16] MEDS: HYDROMORPHONE 1 MG INJ IV ×2 (21:48→22:39)
[2019-07-16] MEDS: SODIUM CHLORIDE 0.9% 1,000 ML 1000 ML IV (21:48)
[2019-07-16] MEDS: levoFLOXacin 500 MG/100 ML PIGGYBACK 100 MG IV (21:48)
[2019-07-16] MEDS: ONDANSETRON 4 MG/2 ML INJ IV (21:48)
[2019-07-16 22:04] LABS: Add Manual Diff / Slide Review NO; Basophils Absolute Auto 100 /uL (0-100); Basophils Percent Auto 0.9 % (0-2); Eosinophils Absolute Auto 200 /uL (0-450); Eosinophils Percent Auto 2.9 % (2-4); Hematocrit 43.2 % (41-53); Hemoglobin 15.2 g/dL (13.5-17.5); Lymphocytes Absolute Auto 2000 /uL (1100-4500); Lymphocytes Percent Auto 26.5 % (25-40); Mean Corpuscular HGB Conc 35.1 % (30-36); Mean Corpuscular Hemoglobin 30.7 PG (26-34); Mean Corpuscular Volume 87.3 fL (80-100); Monocytes Absolute Auto 700 /uL (0-900); Monocytes Percent Auto 9.9 % (3-14); Neutrophils Absolute Auto 4500 /uL (1500-7000); Neutrophils Percent Auto 59.8 % (50-75); Platelet Count 343 X10^3/uL (150-400); Red Blood Cell Count 4.94 X10^6/uL (4.5-5.9); Red Cell Distribution Width 12.4 % (11.6-14.8); White Blood Cell Count 7.6 X10^3/uL (4.5-11.0)
[2019-07-16 22:10] LABS: Lactate (Lactic Acid) 1.5 mmol/L (0.7-2.1)
[2019-07-16 22:11] LABS: BUN Creatinine Ratio 23.3 (6-22); Blood Urea Nitrogen 14 mg/dL (9-20); Carbon Dioxide 26 mmol/L (22-32); Chloride 102 mmol/L (98-107); Estimated Glomerular Filt Rate > 60.0 mL/min (>60); Glucose 102 mg/dL (70-100); HEMOLYSIS 15 (0-50); Potassium 3.8 mmol/L (3.4-5.1); Sodium 140 mmol/L (137-145)
[2019-07-16 23:19] VITALS: BP 146/88; PULSE 85; RESP 19; O2SAT 98
[2019-07-17] MEDS: HYDROMORPHONE 1 MG INJ IV ×5 (00:20→11:23)
[2019-07-17 02:55] VITALS: BP 142/65; PULSE 57; RESP 16; O2SAT 98
[2019-07-17 03:19] VITALS: BMI 18.3
--- NOTE | 2019-07-17 03:25 | P.HP_ITS ---
History of Present Illness History of Present Illness Date Patient Seen: 07/17/19 Time Patient Seen: 03:16 Chief complaint: hernia surgery,states pain in left nut Narrative: Mr. Mauricio Plascencia is a 19-year-old male with history of a traumatic right inguinal hernia while skateboarding had undergone an open inguinal hernia repair with mesh on 07/06/2019 and returns to the ER today for severe testicular pain. The patient was seen on the night 07/10/2019 constipation secondary to postoperative pain medication. The patient was treated and provided bowel regimen which is continued to be effective. Patient states he developed sharp aching pain in the left testicle approximately noon yesterday afternoon he states he felt the beginnings of the pain the day previous. He complains of pain around the surgical site in the right groin acute tenderness suprapubic area with ecchymosis resolving over the left groin has ecchymosis of the scrotum and approximately 1 cm of the penile shaft. He also complains of pain in the perineum, but denies pain when passing stool. He reports no fevers or chills but has had shaking that he associated with strong pain. He denies chest pain or palpitations no shortness of breath cough or wheezing has had no nausea vomiting. The patient reports not being sexually active for over a month and that was with a known partner. Reports no penile discharge rash or lesions. Upon arrival in the ER the patient is afebrile with temperature 98.4?, heart rate of 78, blood pressure 154/89, respirations 20 saturating 90% on room air. Patient evaluated with ultrasound for torsion testicle which finds normal symmetric arterial flow in both testes. Also finds hyperemic appearance and possible epididymitis. Further identifies multiple nonspecific fluid collections 12.7 x 2.0 by 0.7 and another complex fluid collection of 2.4 x 1.9 x 1.5 which represents possible hematoma but cannot exclude superimposed infection or abscess. CT identifies reactive inguinal lymph nodes and induration in fluid long spermatic cord. On laboratory analysis the patient has a normal white count of 7.6 with a hemoglobin of 15.2 and hematocrit of 43.2 and platelets of 343. There is no shift present. His electrolytes within normal range and has a BUN of 14 and creatinine 0.6 his nonfasting glucose is 102. Lactate is 1.5. In the ER the patient has required multiple doses of Dilaudid and has received Zofran L bolus of normal saline and started on levofloxacin 500 mg IV. Urology is consulted by the ER with no further recommendation be on antibiotics. Patient is admitted for orchitis, possible prostatitis, possible cellulitis. Patient History Medical History Acute orchitis (Inactive) Anxiety (Acute) Chest pain (Acute) Constipation (Acute) Depression (Acute) Former smoker (Inactive) Groin injury (Acute ~06/2019) Heart murmur (Acute) History of migraine (Acute) Surgical History History of surgery on wrist (Acute 07/06/19) Family History Mother Cancer History of heart disease Social History household members: none Smoking Status: Never smoker Family & Social History Family History Mother Cancer History of heart disease Social History: household members none Prior Living Arrangements House Safety & Behavioral: Feels Safe in Current Yes Environment Suicidal Ideation Description None Suicide Plan Description No Plan Tobacco & Substance use: Smoking Status Never smoker alcohol intake frequency holiday/special occasion Substance Use Type does not use Comment: Patient lives in a single family home with a male friend. Since his surgery for last 10 days he has been residing with his mother. His parents both living and he describes father's healthy however his mother's had heart disease and cancer. He has 4 siblings 1 brother and 3 sisters all of whom he describes in good health. 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 Smoking: He has been smoking a couple times a week and states he has quit last month. Alcohol: Patient denies alcohol consumption Substance use: The patient acknowledges using CBD oral on his wrist for pain. Advanced directives: Patient has no formal documentation but states his wish to be FULL CODE. He designates his mother to be his surrogate decision maker. Meds Home Medications and Allergies Home Medications Medication Instructions Recorded Confirmed Type ibuprofen 600 mg PO Q6H PRN #60 cap 07/06/19 07/17/19 Rx oxycodone 5 mg PO Q4-6H PRN #30 cap 07/06/19 07/17/19 Rx ondansetron HCl 4 mg tablet 4 mg PO Q8-12H PRN #10 tab 07/07/19 07/17/19 Rx meloxicam [Mobic] 7.5 mg PO DAILY #14 tab 07/11/19 07/17/19 Rx polyethylene glycol 3350 [Miralax] 8.5 gram PO DAILY PRN #119 gram 07/11/19 07/17/19 Rx Allergies Allergy/AdvReac Type Severity Reaction Status Date / Time No Known Drug Allergies Allergy Verified 07/06/19 07:13 Review of Systems Review of Systems ROS Unobtainable: All systems reviewed & are unremarkable except as noted in HPI and below Exam Vital Signs (past 8 hours): - 07/16/19 23:19 07/17/19 02:55 Pulse Rate 85 57 L Respiratory Rate 19 16 Blood Pressure [Left Arm] 146/88 H 142/65 H Pulse Oximetry 98 98 Oxygen Delivery Method Room Air Narrative Exam Narrative: GENERAL APPEARANCE: well developed, thin male in obvious discomfort. HEENT: Normocephalic, PERRLA, conjunctiva clear, EOMs intact without nystagmus, no rhinorrhea, mucous membranes are moist and pink without lesions or exudate. NECK/THYROID: neck supple, no JVD, no thyromegaly, trachea midline. LYMPH NODES: no cervical or supraclavicular lymphadenopathy, 1 cm palpable and tender bilateral inguinal lymph nodes. SKIN: warm and dry, good turgor. HEART: regular rate and rhythm, S1-S2, no murmur, rubs or gallops, brisk capillary refill, no edema LUNGS: clear to auscultation bilaterally, no coarseness crackles or wheezing, no cough present CHEST: Symmetrical movement, no accessory muscle use, no pain to AP and lateral compression. ABDOMEN: Firm, muscular guarding without upper abdominal tenderness, no peritoneal signs or rebound, suprapubic tenderness on palpation, healing right inguinal surgical wound without redness or drainage, bilateral inguinal resolving ecchymosis, no organomegaly, no flank tenderness, hypoactive bowel tones, normal circumcised male with ecchymosis bases shaft, no lesions, no discharge, ecchymosis of scrotal sac without hydrocele, left testicle tender to palpation. BACK: Normal curvature, nontender. EXTREMITIES: moves all extremities, strength is 5/5 and symmetrical, no deformities or joint effusions. NEUROLOGIC: AAO x4, no focal neurologic deficits, motor strength normal upper and lower extremities, sensory exam intact to light touch, hearing grossly normal to speech. PSYCH: Alert, Anxious, cognitive intact. Objective Labs Result Diagrams: 07/16/19 21:50 07/16/19 21:50 Labs: Laboratory Results - last 24 hr 07/16/19 07/16/19 07/16/19 21:50 21:50 21:50 WBC 7.6 RBC 4.94 Hgb 15.2 Hct 43.2 MCV 87.3 MCH 30.7 MCHC 35.1 RDW 12.4 Plt Count 343 Neut % (Auto) 59.8 Lymph % (Auto) 26.5 Will % (Auto) 9.9 Eos % (Auto) 2.9 Baso % (Auto) 0.9 Neut # (Auto) 4500 Lymph # (Auto) 2000 Will # (Auto) 700 Eos # (Auto) 200 Baso # (Auto) 100 Sodium 140 Potassium 3.8 Chloride 102 Carbon Dioxide 26 BUN 14 Creatinine 0.60 L Estimated GFR > 60.0 BUN/Creatinine Ratio 23.3 H Glucose 102 H Lactate 1.5 Calcium 10.0 Assessment & Plan Assessment & Plan narrative: This is a 19-year-old male patient who was approximately 10 days postop right inguinal hernia repair following a traumatic injury while skateboarding. The patient was seen in the ER on 07/10 for constipation and was having suprapubic pain and art-incisional pain at that time with abdominal pain greater than testicular pain. 1. Acute orchitis, present on admission, active -Ultrasound finds no torsion with symmetric blood flow in both testes and hyperemic appearance, possible epididymitis. -patient started on Levaquin 500 mg IV which be continued daily. -patient has Dilaudid 1 mg every 4 hours as needed for pain and Toradol 30 mg IV every 6 hours as needed. Will assess efficacy of pain control. -Zofran 4 mg IV as needed for nausea -scrotal support is ordered -patient is on bed rest 2. Acute Right groin cellulitis, present on admission, active -swelling and pain over the suprapubic, bilateral groin and perineum with enlarged tender inguinal lymph nodes. -CT scan identifies right groin and spermatic cord probable cellulitis. -patient started on ceftriaxone 2 g IV daily. -pain control as above. -consult to Dr. Aguilar who performed the surgery and appreciate his expertise and recommendations. 3. Acute medication induced constipation, present on admission, active -bowel regimen with Doculax 100 mg twice daily, senna at bedtime and Dulcolax suppository and MiraLax as needed. The patient is admitted to the hospital related to severity pain and potential for complications and adverse events. The patient is admitted as an inpatient expected length of stay to be greater than 2 midnights. Quality VTE Deep Vein Thrombosis/Pulmonary Embolism Present on Admission: No
[2019-07-17 03:55] VITALS: BP 132/83; PULSE 76; RESP 22; TEMP 36.7; O2SAT 96
[2019-07-17] MEDS: CEFTRIAXONE 2 GM/50 ML FROZ.PIGGY IV (04:13)
[2019-07-17] MEDS: ACETAMINOPHEN 325 MG TABLET 650 MG PO ×2 (04:13→15:48)
[2019-07-17 04:16] LABS: Procalcitonin < 0.05 ng/mL (<0.5)
[2019-07-17 04:24] LABS: Urine N gonorrhoeae NOT DETECTED
[2019-07-17 04:30] LABS: Urine Chlamydia NOT DETECTED
[2019-07-17] MEDS: POLYETHYLENE GLYCOL 3350 17 GM POWD.PACK 8.5 GM PO (04:40)
[2019-07-17] MEDS: KETOROLAC 30 MG/ML VIAL IV ×3 (04:46→21:14)
[2019-07-17] MEDS: ONDANSETRON 4 MG/2 ML INJ IV (04:46)
--- NOTE | 2019-07-17 06:27 | PC.ADMIT ---
Pt admitted to room 209 from ED. Pt is post left inguinal hernia repair. Came to ED with pain at left scrotum. CT revealed left side fluid collection, hematoma, and orchitis. Pt arrived to floor with pain 06/19. Received 6 doses IV dilaudid in ED. Pt given one dose IV dilaudid and 30mg PRN IV toradol. Pt denies any other symptoms. Blood cultures pending, chlamydia and gonerrhea panels pending. Pt with history chronic migraines. Pt ordered for bed rest as movement of scrotum exacerbates pain. Scrotum elevated on bath blanket, ice applied to site. Admission Note: The patient,Mauricio Plascencia,19 y/o, was given written information regarding hospital policies, unit procedures and contact persons. Patient's smoking status: Never smoker. Vital Signs - 8 hr 07/16/19 23:19 07/17/19 02:55 07/17/19 03:55 Temperature 98.0 F Pulse Rate 85 57 L 76 Respiratory Rate 19 16 22 Blood Pressure 132/83 Blood Pressure [Left Arm] 146/88 H 142/65 H Pulse Oximetry 98 98 96
[2019-07-17 07:34] VITALS: BP 138/98; PULSE 80; RESP 18; TEMP 35.8; O2SAT 100
[2019-07-17] MEDS: DOCUSATE 100 MG CAPSULE PO ×2 (08:06→21:13)
--- NOTE | 2019-07-17 08:17 | PC.NURSE ---
Day [facility]- Pt c/o 06/19 left scrotum and right groin into right scrotum stabbing, throbbing, sharp, shooting pain with variable levels of intensity. Dilaudid IV 1mg prn given at 0805. With little to no relief. Called and spoke with Dr. Blank at 08 to modify pain management regime. IVF infusing well to right AC PIV. Bedrest for now. Scrotom elevated with ice pack while in bed. Gave pt a folded pillow case to place under scrotum to add softer fabric elevation.
[2019-07-17] MEDS: HYDROCODONE/ACET 10/325 TABLET 1 TAB PO ×3 (09:58→18:36)
--- NOTE | 2019-07-17 10:11 | CM.DANOTE ---
Patient is a 19 year old male who was admitted today 07/17/19 for possible Cellulitis. Pt has [employer] for insurance and his PCP is Dr. Ariana Billings. EMR was reviewed. Per MD, pt had hernia surgery 10 days ago and was progressing well until he began having pain in his scrotum area and likely cellulitis and to be treated for a few days before d/c home with parents assist. Pt resides at home with a friend/roommate but has local supportive family whom he has been staying with for assist since his hernia surgery. Pt is independent with ADL's and preference is to d/c back home when stable and pain better managed. Plan: SW to follow closely to confirm that pt continues to improve towards plan of d/c back to mother's house for assist until stable and independent post recent hernia surgery. SW to follow for any further identified discharge planning needs. 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 No History Provided By Patient,Friend Has Patient been admitted in last 30 Yes days? Comment Hernia surgery 10 days ago Prior Living Arrangements House Household Members friend(s) Comment Home with a roommate/friend Type of transporation used prior to Drives own vehicle admit Independent with ADL's Yes Is patient alert and oriented? Yes Caregiver for Another No Comment Likely home pending progress here in the hospital Barriers to Discharge No Discharge Plan Home Transportation Arrangement Family can likely provide transport home when stable Referrals Initiated None needed Review Status In Process Please Provide Date Initial DC 07/17/19 Assessment Was Performed Next Review Type Continued Stay Review
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
[2019-07-17 11:00] VITALS: BP 144/107; PULSE 72; RESP 18; TEMP 36.9; O2SAT 99
[2019-07-17] MEDS: GABAPENTIN 300 MG CAPSULE PO ×2 (11:22→21:13)
[2019-07-17 15:20] VITALS: BP 138/73; PULSE 71; RESP 17; TEMP 36; O2SAT 100
[2019-07-17] MEDS: HYDROMORPHONE 0.5 MG INJ IV (15:48)
[2019-07-17] MEDS: SENNOSIDES 8.6 MG TABLET 17.2 MG PO (21:13)
[2019-07-17 21:16] VITALS: BP 132/72; PULSE 51; RESP 18; TEMP 36.6; O2SAT 100
[2019-07-18] VITALS (8 sets, daily range): BP systolic 123–151; BP diastolic 72–97; PULSE 52–84; RESP 16–20; TEMP 36.4–36.9; O2SAT 96–100
[2019-07-18] MEDS: HYDROMORPHONE 0.5 MG INJ IV ×3 (02:20→10:07)
[2019-07-18] MEDS: POLYETHYLENE GLYCOL 3350 17 GM POWD.PACK 8.5 GM PO (02:28)
[2019-07-18] MEDS: HYDROCODONE/ACET 10/325 TABLET 1 TAB PO ×2 (03:06→06:50)
[2019-07-18] MEDS: CEFTRIAXONE 2 GM/50 ML FROZ.PIGGY IV (03:06)
[2019-07-18] MEDS: KETOROLAC 30 MG/ML VIAL IV ×3 (05:58→21:01)
[2019-07-18 06:16] LABS: Add Manual Diff / Slide Review NO; Basophils Absolute Auto 0 /uL (0-100); Basophils Percent Auto 0.7 % (0-2); Eosinophils Absolute Auto 400 /uL (0-450); Eosinophils Percent Auto 6.8 % (2-4); Hematocrit 40.9 % (41-53); Hemoglobin 14.3 g/dL (13.5-17.5); Lymphocytes Absolute Auto 2000 /uL (1100-4500); Lymphocytes Percent Auto 34.5 % (25-40); Mean Corpuscular Hemoglobin 30.4 PG (26-34); Mean Corpuscular Volume 86.9 fL (80-100); Monocytes Absolute Auto 700 /uL (0-900); Monocytes Percent Auto 11.9 % (3-14); Neutrophils Absolute Auto 2700 /uL (1500-7000); Neutrophils Percent Auto 46.1 % (50-75); Platelet Count 296 X10^3/uL (150-400); Red Cell Distribution Width 12.3 % (11.6-14.8); White Blood Cell Count 5.8 X10^3/uL (4.5-11.0)
--- NOTE | 2019-07-18 06:52 | PC.NURSE ---
Pt reports pain at 8/10 in groin. Groin bruising slightly improved per this art gallery director when compared to last night, pt agrees that bruising/color has improved. Pt reports that edema/swelling has remained the same. Finds elevating scrotum has been helpful. Pt expressed pain is really only tolerable for 2hrs hrs after pain medical anthropology director, them pain is back to an 8/10. He says he just winces and waits until pain med due again. Pt encouraged to further conversation with primary provider. Ice pack to groin given for comfort. PRN miralax given overnight as pt has history of profound constipation with pain meds post surgery.
--- NOTE | 2019-07-18 08:05 | PM.PN.1 ---
Subjective Subjective Date Patient Seen: 07/18/19 Interval history: He is seen today to follow-up his postoperative right inguinal hernia hemorrhage, right testicular orchitis and epididymitis. He continues on ceftriaxone after failing to improve with levofloxacin orally as an outpatient. He continues to have significant testicular/scrotal and right inguinal pain. He is being followed by surgery. His CT scan today shows continued fluid/edema in the right inguinal canal extending into the scrotum. His white count however is not elevated, suggesting that there is no overt abscess. Exam Vital Signs (past 8 hours): - 07/18/19 02:10 07/18/19 05:54 Temperature 97.5 F L 97.8 F Pulse Rate 59 L 73 Respiratory Rate 20 20 Blood Pressure 130/76 133/72 Pulse Oximetry 97 98 Oxygen Delivery Method Room Air Oxygen Flow Rate 0 Narrative Exam Narrative: Alert and oriented x3. He is in moderate distress from movement pain of the right and left scrotal areas. He is also having pain in the right inguinal area postop type. Heart is regular rate and rhythm without murmur Lungs are clear to auscultation bilaterally Extremities have no ankle edema The right epididymal area is swollen and tender. The right testicle is swollen and tender. The left testicle is tender but not swollen and the epididymis on the left side is not swollen. There is dense purplish bruising in a dependent area from his right inguinal hernia surgery which appears to be healed. Objective Labs Result Diagrams: 07/18/19 05:46 07/16/19 21:50 Labs: Laboratory Results - last 24 hr 07/18/19 05:46 WBC 5.8 RBC 4.70 Hgb 14.3 Hct 40.9 L MCV 86.9 MCH 30.4 MCHC 35.0 RDW 12.3 Plt Count 296 Neut % (Auto) 46.1 L Lymph % (Auto) 34.5 [place] % (Auto) 11.9 Eos % (Auto) 6.8 H Baso % (Auto) 0.7 Neut # (Auto) 2700 Lymph # (Auto) 2000 [place] # (Auto) 700 Eos # (Auto) 400 Baso # (Auto) 0 Assessment & Plan Assessment & Plan narrative: This is a 19-year-old male patient who was approximately 10 days postop right inguinal hernia repair following a traumatic injury while skateboarding. The patient was seen in the ER on 07/10 for constipation and was having suprapubic pain and art-incisional pain at that time with abdominal pain greater than testicular pain. 1. Acute Epididymitis/orchitis, present on admission, active -Ultrasound found no torsion with symmetric blood flow in both testes and hyperemic appearance, possible epididymitis. -he has been on ceftriaxone and Levaquin 500 mg IV daily will be added.. -patient has Dilaudid 1 mg every 4 hours as needed for pain and Toradol 30 mg IV every 6 hours as needed. -Zofran 4 mg IV as needed for nausea -scrotal support -patient is on bed rest 2. Acute Right groin cellulitis, present on admission, active -swelling and pain over the suprapubic, bilateral groin and perineum with enlarged tender inguinal lymph nodes. -CT scan repeated today shows continued fluid/edema of the right inguinal canal extending into the scrotum. No obvious abscess. -pain control as above. -General surgery notes are appreciated 3. Acute medication induced constipation, present on admission, active -a large amount of stool remains in the colon on CT today per -bowel regimen with Doculax 100 mg twice daily, senna at bedtime and Dulcolax suppository and MiraLax as needed. Quality VTE Deep Vein Thrombosis/Pulmonary Embolism Present on Admission: No
[2019-07-18] MEDS: GABAPENTIN 300 MG CAPSULE PO ×2 (09:08→20:16)
[2019-07-18] MEDS: DOCUSATE 100 MG CAPSULE PO ×2 (09:08→20:16)
[2019-07-18] MEDS: ACETAMINOPHEN 325 MG TABLET 650 MG PO ×3 (09:09→18:22)
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
[2019-07-18] MEDS: HYDROMORPHONE 1 MG INJ IV ×3 (11:12→20:02)
--- NOTE | 2019-07-18 11:27 | PC.NURSE ---
1100 Pt up to commode & then to [facility]. Dr Dumont in and re assessed pain & med management. Orders written. 1115 Pt given an 1 mg dose IV dilaudid per MD. Pt sats 99 % on r/a. , Pt called Mother earlier to have her bring tight underwear and a jock strap for Pt to wear now. Pt voiding per urinal, will collect a UA per new orders.
--- NOTE | 2019-07-18 12:08 | DI.CT.S_ITS ---
PROCEDURE: CT PELVIS W CON INDICATIONS: Hernia surgery infection TECHNIQUE: After the administration of intravenous contrast, 5 mm thick sections acquired from the iliac crests to the symphysis. 5 mm coronal and sagittal reformats were acquired. For radiation dose reduction, the following was used: automated exposure control, adjustment of mA and/or kV according to patient size. COMPARISON: [facility], CT, CT ABDOMEN PELVIS W CON, 07/16/2019, 22:17. FINDINGS: Image quality: Diagnostic Right inguinal region: There continues to be moderate subcutaneous edema and soft tissue thickening within the right inguinal canal with associated small to moderate-sized adjacent lymph nodes. This tracks into the region of the right scrotum with scrotal thickening on the right and a complex right-sided hydrocele. Phlegmonous soft tissue changes along the right inguinal canal are present without a definable peripherally enhancing fluid collection evident. Other pelvic soft tissues: Bladder wall thickness is normal. No bladder calculi are evident. The prostate may contain coarse calcifications, but is not significantly enlarged. Imaged bowel loops are nondilated. Moderate amount of residual stool is seen within the colon. There is no free fluid, loculated fluid collection or free air within the peritoneal cavity. The aorta and iliac arteries are patent and otherwise unremarkable. Bones: No suspicious bony lesions. No acute fractures are evident. IMPRESSION: 1. Continued edema and fluid extending along the right inguinal canal, extending into the right scrotum is similar in appearance to the previous CT. Phlegmonous soft tissue changes are present without an appreciable abscess evident. 2. Large amount of stool within the colon. Dictated by: Glen Howell M.D. on 07/18/2019 at 12:09 Approved by: Glen Howell M.D. on 07/18/2019 at 12:13
[2019-07-18] MEDS: levoFLOXacin 500 MG/100 ML PIGGYBACK 100 MG IV (13:36)
[2019-07-18] MEDS: SENNOSIDES 8.6 MG TABLET 17.2 MG PO ×2 (13:47→20:16)
[2019-07-18 14:35] LABS: Bacteria Urine None Seen; RBC Urine None Seen (0-5/HPF); WBC Urine None Seen (0-5/HPF)
[2019-07-18 14:40] LABS: Appearance Urine UA CLEAR; Bilirubin Urine UA NEGATIVE (NEGATIVE); Color Urine UA YELLOW; Glucose Urine UA NEGATIVE (Negative); Ketones Urine UA NEGATIVE (NEGATIVE); Leukocyte Esterase Urine UA NEGATIVE (NEGATIVE); Nitrite Urine UA NEGATIVE (Negative); Occult Blood Urine UA NEGATIVE (Negative); Protein Urine UA NEGATIVE (Negative); Specific Gravity Urine UA <=1.005 (1.000-1.035); Urobilinogen Urine UA 0.2 E.U./dL (0.2)
[2019-07-18 14:47] LABS: Culture Indicated Urine Cult Not Indicated; Urine Comments Microscopic Normal
--- NOTE | 2019-07-18 17:25 | PT.IIE ---
Current Diagnoses Orchitis (07/17/19) Unspecified abdominal pain (07/17/19) Pain, unspecified (07/17/19) Encounter for follow-up examination after completed treatment for conditions other than malignant neoplasm (07/17/19) Surgical History (Last Reviewed 07/17/19 @ 11:16 by Kael Aguilar MD) History of surgery on wrist (Acute 07/06/19) Medical History (Last Reviewed 07/17/19 @ 11:16 by Kael Aguilar MD) Acute orchitis (Inactive) Anxiety (Acute) Chest pain (Acute) Constipation (Acute) Depression (Acute) Former smoker (Inactive) Groin injury (Acute ~06/2019) Heart murmur (Acute) History of migraine (Acute) Physical Therapy Inpatient Evaluation/Re-Eval M1 PT/OT-IP Prior Functional Status Start: 07/18/19 16:38 Freq: NEEDED Status: Active Protocol: Document 07/18/19 17:03 AW (Rec: 07/18/19 17:25 AW [id number]) Medical Review Prior Functional Status Medical History Reviewed Yes Diet/Fluid Consistency Regular Communication Able to make needs known Mobility and Gait Pt is an active young man, independent with all functional mobility, recreational skateboarder. Activities of Daily Living and IADL's Independent Social History Household Members friend(s) Living Arrangements House Number of Floors (Floors) 3 or More Floors Number of Stairs To Enter/Railing? Pt has been staying with his mom since surgery 2 weeks ago for repair of R inguinal hernia. At his mom's house, he can enter with no stairs and stay on the same level with no need to use stairs at all Home Environment Standard Height Toilet,Tub/ Shower Home Equipment Crutches,Shower Seat without Backrest,Hand Held Shower,Grab Bars Near Toilet Employment Status Unemployed Additional Social History Comment Home details refer to mother's house to which he plans to return at discharge from this hospitalization. His mom works outside the home, but can return and be available to assist if he has urgent needs. Pt normally lives in a house with friends. 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 M2 PT-IP Current Condition Start: 07/18/19 16:38 Freq: NEEDED Status: Active Protocol: Document 07/18/19 17:03 AW (Rec: 07/18/19 17:25 AW [id number]) Physical Therapy Current Condition Current Condition Evaluation Date 07/18/19 Treatment Diagnosis left testicular pain s/p R inguinal hernia repair, difficulty walking Onset Date 07/16/19 Weight Bearing Status Weight Bearing Status Full Weight Bearing M3 PT-IP Subjective Start: 07/18/19 16:38 Freq: NEEDED Status: Active Protocol: Document 07/18/19 17:03 AW (Rec: 07/18/19 17:25 AW [id number]) Subjective Physical Therapy Visit Type Type Initial Evaluation Visit Start Time 16:45 Visit Stop Time 17:02 Total Visit Minutes 17 Number of YARD COUPLER Visits 0 Physical Therapy Visit Comments Patient Comments Pt is in a lot of pain, has not been out of bed much, but is willing to participate in therapy. Patient Goals Pt hopes to return to his mother's house at discharge to recuperate before returning to his routine home environment Therapy Pain Assessment Pain When Pain Assessed During Mobility Pain Present Pain Present Pain Reported Location Left Intensity 8 Scale Used Numeric (1 - 10) Description Aching,Burning,Cramping Pain Management Techniques Apply Heat,Modification of Treatment,Re-positioning, Timing of Activity with Medications M4 PT-IP Mobility and Gait Start: 07/18/19 16:38 Freq: NEEDED Status: Active Protocol: Document 07/18/19 17:03 AW (Rec: 07/18/19 17:25 AW [id number]) PT-Bed Mobility Assessment Supine to Sit Supine to Sit Standby Assistance Scooting Scooting to Edge of Bed Standby Assistance PT-Transfer Assessment Sit to and From Stand Sit to and from Stand Contact Guard Assistance Equipment Transfer Assistive Device Gait Belt Orthotic/Prosthetic Devices or Brace: No Transfers Transfer Destination Chair Transfer Technique Stand Step Pivot Transfer Ability Level of Assist Standby Assistance Comments Mobility Comments Pt required CGA at most for sit to stand transfers. Limiting factor is left testicular and right groin pain. Gait Assessment Gait Gait Assistance Required: Standby Assistance,Contact Guard Assist Distance (Feet) 20 Assistive Devices Assistive Device Gait Belt Orthotic/Prosthetic Devices or Brace: No Gait Deviations General Gait Pattern Antalgic,Decreased Stride Length,Flexed Trunk Factors Limiting Gait Function Factors Limiting Gait Function Pain Comments Gait Comments Pt ambulated ~20 feet in room using gait belt only SBA to CGA. Pain becomes more intense with upright posture, so he transfers and walks with flexed trunk to avoid stress to surgical site. PT-Balance Assessment Sitting Balance and Reactions Static Sitting Balance Ability Normal Dynamic Sitting Balance Ability Normal Standing Balance and Reactions Static Standing Balance Ability Good Dynamic Standing Balance Ability Good M5 PT-IP Objective Assessments Start: 07/18/19 16:38 Freq: NEEDED Status: Active Protocol: Document 07/18/19 17:03 AW (Rec: 07/18/19 17:25 AW [id number]) Orientation Orientation/Cognition Level of Alertness Alert Orientation Name,Date,Place,Situation Language Function Ability No Deficits Noted Safety Awareness Understands Safety Issues Memory Description No Deficits Noted Gross Range of Motion Upper Extremity ROM Assessment Within Functional Limits Lower Extremity ROM Assessment Within Functional Limits Strength Upper Extremity Strength Assessment Within Functional Limits Lower Extremity Strength Assessment Within Functional Limits Comments Strength Comments Pt able to move against gravity. Resisted strength testing not undertaken due to severity of groin pain. Coordination Assessment Gross Coordination Gross Coordination WNL Sensation Assessment Sensation Gross Sensation WNL Muscle Tone Muscle Tone WNL Yes M6 PT-IP Treatment Start: 07/18/19 16:38 Freq: NEEDED Status: Active Protocol: Document 07/18/19 17:03 AW (Rec: 07/18/19 17:25 AW [id number]) Physical Therapy Treatment Education Education Provided Safety Other Treatments Other Treatment Performed Pt advised to have SBA at all times for all mobility due to pain medications. M7 PT-IP Assessment and Plan Start: 07/18/19 16:38 Freq: NEEDED Status: Active Protocol: Document 07/18/19 17:03 AW (Rec: 07/18/19 17:25 AW [id number]) PT Summary Assessment and Plan Potential Rehabilitation Potential Good Status of Condition at Evaluation Evolving Summary Impairments Pain,Transfers,Gait,Activity Tolerance Assessment Summary Pt is a 19 year old man seen two weeks after R inguinal hernia repair. He is currently admitted with left testicle pain and right groin pain. He is typically independent with all functional mobility and ADL's. Currently, transfers are impaired and gait is limited due to pain. Gait is notable for flexed trunk which patient admits helps to manage his pain by avoiding stretch to the surgical site. Ambulation ~20 feet required SBA to CGA for safety using a gait belt. No strength or coordination impairments were noted on exam. Pain of 7/10 at rest and 8/10 with movement is the limiting factor with his mobility. PT recommendation is for discharge back to pt's mother' s house with assistance as needed when medically cleared. Goals Bed Mobility Goal Independent Transfer Goal Independent Gait Goal Independent Gait Distance 100 Days to Meet Goals 5 Frequency of Treatment Frequency Of Treatment Once a Day Treatment Plan Physical Therapy Treatment Plan Transfer Training,Gait Training,Discharge Planning, Hot or Cold Pack,Neuromuscular Re-ed Other Recommendations and Next Treatment progress ambulation, attempt Focus postural correction in standing if tolerated Recommendations To Nursing Amount of Assist Needed 1 Person Assist Discharge Recommendations PT Discharge Recommendations Home with Assistance Other Discharge Recommendations Home to mother's house for increased level of assist
[2019-07-18] MEDS: SODIUM CHLORIDE 0.9% FLUSH 10 ML IV (21:01)
[2019-07-18] MEDS: diazePAM 5 MG TABLET PO (21:52)
--- NOTE | 2019-07-18 22:16 | PC.NURSE ---
Assumed care of pt at 1500. Pt resting in bed during bedside hand-off. Mother left unit to obtain scrotal support as the hospital does not have any in stock. Mother was unable to find scrotal support but did obtain tighter briefs. Pain medication given at approx 1550 effective when given at approx 2030 had no effect. Pt rates pain 10/10 with no relief. Vital signs above normal and pt reports chest pain. Provider notified. Per provider okay to apply ice pack to scrotum if helping. Provider assessed pt and order one time dose of valium. Medicated per jan. Pt reported feeling much better. Pulse is now back to baseline.
[2019-07-19] VITALS (7 sets, daily range): BP systolic 109–154; BP diastolic 57–96; PULSE 43–96; RESP 16–27; TEMP 35.8–37.1; O2SAT 98–100
[2019-07-19] MEDS: POLYETHYLENE GLYCOL 3350 17 GM POWD.PACK 8.5 GM PO ×2 (00:27→09:34)
[2019-07-19] MEDS: SODIUM CHLORIDE 0.9% FLUSH 10 ML IV ×6 (00:28→21:45)
[2019-07-19] MEDS: ACETAMINOPHEN 325 MG TABLET 650 MG PO ×4 (00:28→17:22)
[2019-07-19] MEDS: HYDROMORPHONE 1 MG INJ IV ×4 (00:29→17:21)
[2019-07-19] MEDS: CYCLOBENZAPRINE 10 MG TABLET PO ×4 (00:50→21:19)
[2019-07-19] MEDS: CEFTRIAXONE 2 GM/50 ML FROZ.PIGGY IV (04:39)
--- NOTE | 2019-07-19 05:02 | PC.NURSE ---
Pt with pain crisis last devon, pt stated he was having chest pain, difficulty breathing. Provider aware and at bedside at that time. Provider ordered one 5mg PO valium. Pt symptoms subsided per report. Pt stated pain at scrotum started to return around 0000. Describes pain on left nut as sharp. Describes pain on right upper scrotum as heavy pressure Slight swelling noted at this site. Overall dark purple bruising is lessening over the past 3 nights this RN has worked with pt. Incision from right inguinal repair on 07/06 with borders attached and surgical glue intact. No signs of infection. MD conferred with RN at beginning of shift reinforcing need to monitor for over sedation while pt has valium in system and administration of IV dilaudid for pain control. MD notified at 0000 that pt had increasing pain, 05/19, IV dilaudid 1mg given IVP. Provider ordered scheduled Flexeril with first dose now. Pt easily aroused, no over sedation. Pt stated he felt better with use of Flexeril as his abdominal muscles were able to relax as the intensity of the pain caused tightening. CT pelvis done yesterday edema on right side and large amount of stool in colon. Pt given PRN miralax and prune juice overnight. Plan to continue IV antibiotics and manage pain control.
[2019-07-19] MEDS: KETOROLAC 30 MG/ML VIAL IV ×3 (05:19→21:21)
[2019-07-19] MEDS: DOCUSATE 100 MG CAPSULE PO ×2 (09:17→21:19)
[2019-07-19] MEDS: GABAPENTIN 300 MG CAPSULE PO ×3 (09:17→21:20)
--- NOTE | 2019-07-19 10:22 | PT-IP ANOTE ---
Pt with bedrest orders. gave verbal that this will be changed today, however, per policy, the updated activity order must be updated in the chart prior to mobilization. Will await this to occur prior to attempting next PT session.
[2019-07-19] MEDS: BISACODYL 10 MG SUPP PR (12:15)
--- NOTE | 2019-07-19 12:47 | PM.PN.1 ---
Subjective Subjective Date Patient Seen: 07/19/19 Time Patient Seen: 12:50 Interval history: No acute overnight events. Left testicular pain continues to be an issue. I am his Dilaudid IV was increased from 0.5-1 mg q.4 hours. Reports better pain relief but continues to have concerns over the short interval of pain relief. Exam Vital Signs (past 8 hours): - 07/19/19 05:24 07/19/19 09:36 Temperature 96.5 F L Pulse Rate 50 L 43 L Respiratory Rate 22 Blood Pressure 109/65 Pulse Oximetry 99 Oxygen Delivery Method Room Air Oxygen Flow Rate 0 Narrative Exam Narrative: General adult male acute alert and oriented no acute distress Abdomen soft, right inguinal incision clean dry intact. Scrotum bruising improving. Left testicular pain with palpation and right inguinal tenderness to palpation. No cellulitis no drainage no erythema no fluctuance. Objective Labs Result Diagrams: 07/18/19 05:46 07/16/19 21:50 Labs: Laboratory Results - last 24 hr 07/18/19 14:15 Urine Color Yellow Urine Appearance Clear Urine pH 5.0 Ur Specific [place] <=1.005 Urine Protein Negative Urine Glucose (UA) Negative Urine Ketones Negative Urine Occult Blood Negative Urine Nitrate Negative Urine Bilirubin Negative Urine Urobilinogen 0.2 Ur Leukocyte Esterase Negative Urine RBC None seen Urine WBC None seen Urine Bacteria None seen Ur Culture Indicated? Cult not indicated Micro UA Comment Microscopic normal Assessment & Plan Assessment & Plan narrative: 19-year-old male week and a half status post open right inguinal hernia repair with mesh for traumatic right inguinal hernia admitted for pain control. Afebrile no leukocytosis on yesterday's labs, urinalysis reviewed negative, scrotal ultrasound demonstrates blood flow to both testicles unclear as to the cause of his left testicular pain. The right inguinal hernia repair appears to be intact without signs or symptoms of infection or recurrence. Plan -Physical therapy, must be getting out of bed and ambulating -SCDs -Scrotal support -Added Pregablin at bedtime -Cont scheduled Gabapentin, Toradol or Ibuprofen and Tylenol. Wean narcotics as able Quality VTE Deep Vein Thrombosis/Pulmonary Embolism Present on Admission: No
[2019-07-19] MEDS: levoFLOXacin 500 MG/100 ML PIGGYBACK 100 MG IV (13:33)
--- NOTE | 2019-07-19 13:53 | PC.NURSE ---
pt appears uncomfortable with grimacing and clutching at testes and reports pain 7-8/10 entire am shift- regardless of rx: toradol/flexeril/iv dilaudid/tylenol/gabapentin given. he is taking small-moderate amt of po and did allow this RN to place bisacodyl suppository after receiving both clarence/miralax and did report large bm - iv levaquin infusing at present
[2019-07-19] MEDS: HYDROMORPHONE 2 MG TABLET PO ×2 (17:21→21:19)
--- NOTE | 2019-07-19 19:54 | PM.PN.1 ---
Subjective Subjective Date Patient Seen: 07/19/19 Time Patient Seen: 13:00 Interval history: He is seen today to follow-up his postoperative right inguinal hernia hemorrhage, right testicular orchitis and epididymitis. He continues on ceftriaxone and levaquin after failing to improve with levofloxacin orally as an outpatient. He continues to have significant testicular/scrotal and right inguinal pain. He is being followed by surgery. His CT scan yesterday showed no significant changes. We will try and increase his pain medications today to try and control this while undergoing treatment. Exam Vital Signs (past 8 hours): - 07/19/19 13:43 07/19/19 15:45 Temperature 98.4 F 98.8 F Pulse Rate 90 96 H Respiratory Rate 27 H 19 Blood Pressure 142/57 H 133/96 H Pulse Oximetry 100 99 Oxygen Delivery Method Room Air Oxygen Flow Rate 0 Narrative Exam Narrative: GENERAL APPEARANCE: Well developed, well nourished, in no acute distress. SKIN: Inspection of the skin reveals no rashes, ulcerations or petechiae. HEENT: The sclerae were anicteric and conjunctivae were pink and moist. Extraocular movements were intact and pupils were equal, round with normal accommodation. External inspection of the ears and nose showed no scars, lesions, or masses. Lips, teeth, and gums showed normal mucosa. The oral mucosa, hard and soft palate, tongue and posterior pharynx were unremarkable. NECK: Supple and symmetric. There was no thyroid enlargement, and no tenderness, or masses were felt. CHEST: Normal AP diameter and normal contour without any kyphoscoliosis. LUNGS: Auscultation of the lungs revealed no wheezes, rhonchi, or rales. CARDIOVASCULAR: There was a regular rate and rhythm without any murmurs, gallops, rubs. Peripheral pulses were 2+ and symmetric. ABDOMEN: Soft and nontender with normal bowel sounds. No ascites was noted. Swollen, tender and erythematous scrotum with tender testicle on the L and tender R inguinal canal. Incision in R groin appears C/d/I. MUSCULOSKELETAL: There was no tenderness or effusions noted. Muscle strength and tone were normal. EXTREMITIES: No cyanosis, clubbing or edema. NEUROLOGIC: Alert and oriented x 3. Normal affect. Strength is +5/5 in the Upper Extremities and Lower Extremities Bilaterally. Sensation to touch was normal. Objective Labs Result Diagrams: 07/18/19 05:46 07/16/19 21:50 Assessment & Plan Assessment & Plan narrative: This is a 19-year-old male patient who was approximately 10 days postop right inguinal hernia repair following a traumatic injury while skateboarding. The patient was seen in the ER on 07/10 for constipation and was having suprapubic pain and art-incisional pain at that time with abdominal pain greater than testicular pain. 1. Acute Epididymitis/orchitis, present on admission, active -Ultrasound found no torsion with symmetric blood flow in both testes and hyperemic appearance, possible epididymitis. -he has been on ceftriaxone and Levaquin 500 mg IV daily will be added.. -patient has Dilaudid 1 mg every 4 hours as needed for pain and Toradol 30 mg IV every 6 hours as needed. Will add oral dilaudid tonight to see if improvement can last longer. -Zofran 4 mg IV as needed for nausea -scrotal support -no need for bed rest, needs PT evaluation. 2. Acute Right groin cellulitis, present on admission, active -swelling and pain over the suprapubic, bilateral groin and perineum with enlarged tender inguinal lymph nodes. -CT scan repeated 07/18 showed continued fluid/edema of the right inguinal canal extending into the scrotum. No obvious abscess. -pain control as above. -General surgery notes are appreciated 3. Acute medication induced constipation, present on admission, active -a large amount of stool remains in the colon on CT today per -bowel regimen with Doculax 100 mg twice daily, senna at bedtime and Dulcolax suppository and MiraLax as needed. Quality VTE Deep Vein Thrombosis/Pulmonary Embolism Present on Admission: No
[2019-07-19] MEDS: SENNOSIDES 8.6 MG TABLET 17.2 MG PO (21:20)
[2019-07-19] MEDS: AMITRIPTYLINE 10 MG TABLET PO (21:22)
[2019-07-20] VITALS (7 sets, daily range): BP systolic 110–140; BP diastolic 57–102; PULSE 59–93; RESP 16–24; TEMP 35.9–37.1; O2SAT 92–100
[2019-07-20] MEDS: ACETAMINOPHEN 325 MG TABLET 650 MG PO ×4 (00:24→17:25)
[2019-07-20] MEDS: CEFTRIAXONE 2 GM/50 ML FROZ.PIGGY IV (04:00)
[2019-07-20] MEDS: HYDROMORPHONE 2 MG TABLET PO ×5 (04:12→22:51)
--- NOTE | 2019-07-20 04:39 | PC.NURSE ---
Pt has been complaining of pain 07/20. Pt's vital signs are stable. Incision is intact. Pt has been sleeping all this shift. Medicated at 0430 2mg PO dilaudid.
[2019-07-20 05:53] LABS: Add Manual Diff / Slide Review NO; Basophils Absolute Auto 0 /uL (0-100); Basophils Percent Auto 0.6 % (0-2); Eosinophils Absolute Auto 600 /uL (0-450); Eosinophils Percent Auto 9.8 % (2-4); Hematocrit 43.1 % (41-53); Lymphocytes Absolute Auto 1800 /uL (1100-4500); Lymphocytes Percent Auto 27.6 % (25-40); Mean Corpuscular HGB Conc 34.7 % (30-36); Mean Corpuscular Hemoglobin 30.4 PG (26-34); Mean Corpuscular Volume 87.6 fL (80-100); Monocytes Absolute Auto 600 /uL (0-900); Monocytes Percent Auto 8.8 % (3-14); Neutrophils Absolute Auto 3500 /uL (1500-7000); Neutrophils Percent Auto 53.2 % (50-75); Platelet Count 296 X10^3/uL (150-400); Red Blood Cell Count 4.92 X10^6/uL (4.5-5.9); Red Cell Distribution Width 12.4 % (11.6-14.8); White Blood Cell Count 6.6 X10^3/uL (4.5-11.0)
[2019-07-20 06:03] LABS: BUN Creatinine Ratio 27.1 (6-22); Blood Urea Nitrogen 19 mg/dL (9-20); Calcium 10.2 mg/dL (8.4-10.2); Carbon Dioxide 32 mmol/L (22-32); Chloride 98 mmol/L (98-107); Estimated Glomerular Filt Rate > 60.0 mL/min (>60); Glucose 68 mg/dL (70-100); HEMOLYSIS < 15 (0-50); Potassium 4.7 mmol/L (3.4-5.1); Sodium 140 mmol/L (137-145)
[2019-07-20] MEDS: KETOROLAC 30 MG/ML VIAL IV ×3 (06:33→22:47)
[2019-07-20] MEDS: CYCLOBENZAPRINE 10 MG TABLET PO (08:27)
[2019-07-20] MEDS: GABAPENTIN 300 MG CAPSULE PO ×2 (08:27→14:45)
[2019-07-20] MEDS: SODIUM CHLORIDE 0.9% FLUSH 10 ML IV ×3 (08:27→22:51)
[2019-07-20] MEDS: DOCUSATE 100 MG CAPSULE PO ×2 (08:27→22:46)
[2019-07-20] MEDS: HYDROMORPHONE 1 MG INJ IV ×2 (09:26→15:53)
--- NOTE | 2019-07-20 09:56 | PC.NURSE ---
Addendum entered by Lou Aleman R.N. 07/20/19 10:34: DR. ROBERTS HAS SEEN PATIENT, ASSESSED SCROTAL AND SURROUNDING AREAS, AND ALTERED PAIN MED REGIMEN. Original Note: PATIENT REPORTS 10/10 PAIN DESPITE MEDICATIONS. ALSO REPORTS MIGRAINE W/ LIGHT SENSATIVITY. PATIENT IS MOANING AND BREATHING HEAVILY R/T PAIN. GUARDING SCROTAL AREA WITH HIS HANDS AND SLIGHT ROCKING. APPEARS TO BE DISTRESSED WITH PAIN. NOTIFIED JAVA [employer] DEVELOPER WHO IS IN MEETING W/ DR. ROBERTS. HE WILL NOTIFY , AND ASK HIM TO SEE PATIENT JORDAN TO EVAL. HIS SCROTAL AREA IS RED AND SWOLLEN WITH BRUISING ACROSS PUBIC AREA AND ACROSS PENIS. STATES IT FEELS BURNING AND TINGLING AND IF HE IS CONTINUOUSLY BEING KICKED IN THE BALLS.
[2019-07-20] MEDS: METHOCARBAMOL 500 MG TABLET 750 MG PO ×3 (10:41→22:45)
[2019-07-20] MEDS: diazePAM 5 MG TABLET PO ×3 (10:41→23:34)
[2019-07-20] MEDS: levoFLOXacin 500 MG/100 ML PIGGYBACK 100 MG IV (12:11)
--- NOTE | 2019-07-20 16:14 | PM.PN.1 ---
Subjective Subjective Date Patient Seen: 07/20/19 Time Patient Seen: 09:50 Interval history: He is seen today to follow-up his postoperative right inguinal hernia hemorrhage, right testicular orchitis and epididymitis. He continues on ceftriaxone and levaquin after failing to improve with levofloxacin orally as an outpatient. He continues to have significant testicular/scrotal and right inguinal pain. He is being followed by surgery. His CT scan yesterday showed no significant changes. Today I discussed the case surgery who recommended consultation a urologist. I discussed the case with the on-call urologist Dr. rodriguez, who send the workup was extremely thorough and had no further recommendations at this time other than continued scrotal elevation and pain control, although he is in agreement that the patient's reported pain is not in agreement with imaging findings. Exam Vital Signs (past 8 hours): - 07/20/19 12:00 07/20/19 15:31 Temperature 98.2 F 98.8 F Pulse Rate 69 93 H Respiratory Rate 16 18 Blood Pressure 129/63 125/102 H Pulse Oximetry 99 98 Oxygen Delivery Method Room Air Oxygen Flow Rate 0 Narrative Exam Narrative: GENERAL APPEARANCE: Well developed, well nourished, grimacing from pain while sitting upright. SKIN: Inspection of the skin reveals no rashes, ulcerations or petechiae. HEENT: The sclerae were anicteric and conjunctivae were pink and moist. Extraocular movements were intact and pupils were equal, round with normal accommodation. External inspection of the ears and nose showed no scars, lesions, or masses. Lips, teeth, and gums showed normal mucosa. The oral mucosa, hard and soft palate, tongue and posterior pharynx were unremarkable. NECK: Supple and symmetric. There was no thyroid enlargement, and no tenderness, or masses were felt. CHEST: Normal AP diameter and normal contour without any kyphoscoliosis. LUNGS: Auscultation of the lungs revealed no wheezes, rhonchi, or rales. CARDIOVASCULAR: There was a regular rate and rhythm without any murmurs, gallops, rubs. Peripheral pulses were 2+ and symmetric. ABDOMEN: Soft and nontender with normal bowel sounds. No ascites was noted. Swollen, tender and erythematous scrotum with tender testicle on the L and tender R inguinal canal. Incision in R groin appears C/d/I. MUSCULOSKELETAL: There was no tenderness or effusions noted. Muscle strength and tone were normal. EXTREMITIES: No cyanosis, clubbing or edema. NEUROLOGIC: Alert and oriented x 3. Normal affect. Strength is +5/5 in the Upper Extremities and Lower Extremities Bilaterally. Sensation to touch was normal. Objective Labs Result Diagrams: 07/20/19 05:40 07/20/19 05:40 Labs: Laboratory Results - last 24 hr 07/20/19 07/20/19 05:40 05:40 WBC 6.6 RBC 4.92 Hgb 15.0 Hct 43.1 MCV 87.6 MCH 30.4 MCHC 34.7 RDW 12.4 Plt Count 296 Neut % (Auto) 53.2 Lymph % (Auto) 27.6 [place] % (Auto) 8.8 Eos % (Auto) 9.8 H Baso % (Auto) 0.6 Neut # (Auto) 3500 Lymph # (Auto) 1800 [place] # (Auto) 600 Eos # (Auto) 600 H Baso # (Auto) 0 Sodium 140 Potassium 4.7 Chloride 98 Carbon Dioxide 32 BUN 19 Creatinine 0.70 Estimated GFR > 60.0 BUN/Creatinine Ratio 27.1 H Glucose 68 L Calcium 10.2 Assessment & Plan Assessment & Plan narrative: This is a 19-year-old male patient who was approximately 10 days postop right inguinal hernia repair following a traumatic injury while skateboarding. The patient was seen in the ER on 07/10 for constipation and was having suprapubic pain and art-incisional pain at that time with abdominal pain greater than testicular pain. 1. Acute Epididymitis/orchitis, present on admission, active -Ultrasound found no torsion with symmetric blood flow in both testes and hyperemic appearance, possible epididymitis. -he has been on ceftriaxone and Levaquin 500 mg IV daily will be added.. -patient has Dilaudid 1 mg every 4 hours as needed for pain and Toradol 30 mg IV every 6 hours as needed. Will add oral dilaudid tonight to see if improvement can last longer. -Zofran 4 mg IV as needed for nausea -scrotal support -no need for bed rest, needs PT evaluation. -Urology contacted today, recommended scrotal elevation and ice packs, but he is on appropriate therapy and has no further recommendations. 2. Acute Right groin cellulitis, present on admission, active -swelling and pain over the suprapubic, bilateral groin and perineum with enlarged tender inguinal lymph nodes. -CT scan repeated 07/18 showed continued fluid/edema of the right inguinal canal extending into the scrotum. No obvious abscess. -pain control as above. -General surgery notes are appreciated 3. Acute medication induced constipation, present on admission, active -a large amount of stool remains in the colon on CT today per -bowel regimen with Doculax 100 mg twice daily, senna at bedtime and Dulcolax suppository and MiraLax as needed. DVT: SCD Code: full Dispo: pending appropriate pain control. Quality VTE Deep Vein Thrombosis/Pulmonary Embolism Present on Admission: No
--- NOTE | 2019-07-20 16:34 | PC.NURSE ---
Addendum entered by Kait Valentino R.N. 07/20/19 23:38: Refused to walk in hallway tonight, c/o migraine and lights bother me. Sat in recliner for meal. Then back to bed, after given valium and PO Dilaudid patient fell asleep for about 3.5 hours. I woke him at 2230 to administer his 2100 meds. He immediately started rocking self back and forth, getting into a position laying on left side. SODDER told me she had not emptied patient's urinal tonight. Pt clarified that he has not voided since my shift started at 1500. I instructed him to drink entire bottle of water and told him he needs to get up to BR to void. He refused to get up to void. Teaching given regarding the need to empty bladder to keep urinary system healthy and avoid excess pressure to groin from a full bladder. I instructed him to keep drinking clear liquids and he agreed to get up soon to void. He said you guys keep saying all the same things--I know this. I apologized for being bossy but explained rationale one more time, expressing concern & giving words of comfort & support. I talked with him about my conversation with Nik José Miguel PLUNKETT & Mauricio's mom about the need for a jock strap. Mother said she would pick one up and bring here in the morning. Nik PLUNKETT gave Mauricio's mom a full update on careplan. Original Note: Shift notes: Mauricio observed sitting up at 90 degrees, rocking upper body back and forth with facial grimace. Ox3 and able to express concerns. Rating groin pain 9 and [place] pain 6, reports his headache seems to get worse when the (groin) pain gets worse. Told me he cannot bear it. He says he feels like someone keeps kicking me in the balls.' BP 125/102, pulse 100 bpm. Medicated with Dilaudid 1 mg IV as it is too soon to administer PO dose. Too early for Valium. We discussed pain med scheduling & availablility of meds. LS diminished thoughout, instructed deep breathing every hour, he does say it hurts lower abd/groin to deep breathe. Scrotum placed in pillowcase sling then elevated on folded towel. Bruising as previously reported, does have pale yellow bruising to top & inner part of right thigh. SCD's left off per his request. Denies difficulty voiding. PT now in room to work with him.
--- NOTE | 2019-07-20 16:55 | PT.IPTN ---
Current Diagnoses Orchitis (07/17/19) Unspecified abdominal pain (07/17/19) Pain, unspecified (07/17/19) Encounter for follow-up examination after completed treatment for conditions other than malignant neoplasm (07/17/19) Physical Therapy Treatment Note M2 PT-IP Current Condition Start: 07/18/19 16:38 Freq: NEEDED Status: Active Protocol: Document 07/18/19 17:03 AW (Rec: 07/18/19 17:25 AW [id number]) Physical Therapy Current Condition Current Condition Evaluation Date 07/18/19 Treatment Diagnosis left testicular pain s/p R inguinal hernia repair, difficulty walking Onset Date 07/16/19 Weight Bearing Status Weight Bearing Status Full Weight Bearing M3 PT-IP Subjective Start: 07/18/19 16:38 Freq: NEEDED Status: Active Protocol: Document 07/20/19 16:45 AW (Rec: 07/20/19 16:55 AW [id number]) Subjective Physical Therapy Visit Type Type Treatment Note Visit Start Time 16:27 Visit Stop Time 16:42 Number of MACHINE ADJUSTER LEADER CASE TRIM Visits 0 Physical Therapy Visit Comments Patient Comments Pt found resting in bed, reports migraine headache but willing to work with PT. Therapy Pain Assessment Pain When Pain Assessed During Mobility Pain Present Pain Present Pain Reported Location Groin Intensity 8 Scale Used Numeric (1 - 10) Pain Behaviors Guarding,Holding Area M4 PT-IP Mobility and Gait Start: 07/18/19 16:38 Freq: NEEDED Status: Active Protocol: Document 07/20/19 16:45 AW (Rec: 07/20/19 16:55 AW [id number]) PT-Bed Mobility Assessment Supine to Sit Supine to Sit Standby Assistance Scooting Scooting to Edge of Bed Standby Assistance Scooting Up and Down in Bed Standby Assistance PT-Transfer Assessment Sit to and From Stand Sit to and from Stand Contact Guard Assistance Equipment Transfer Assistive Device Gait Belt Orthotic/Prosthetic Devices or Brace: No Transfers Transfer Destination Chair Transfer Technique Stand Step Pivot Transfer Ability Level of Assist Standby Assistance,Contact Guard Assistance Comments Mobility Comments Pt required CGA for sit to stand from edge of bed due to pain. Gait Assessment Gait Gait Assistance Required: Standby Assistance,Contact Guard Assist Distance (Feet) 40 Assistive Devices Assistive Device Gait Belt Orthotic/Prosthetic Devices or Brace: No Gait Deviations General Gait Pattern Antalgic,Decreased Stride Length,Flexed Trunk Factors Limiting Gait Function Factors Limiting Gait Function Pain Comments Gait Comments No change noted in gait pattern. Flexed trunk to avoid stress to groin tissues. Pain at rest was 6/10; 8/10 with mobility. M5 PT-IP Objective Assessments Start: 07/18/19 16:38 Freq: NEEDED Status: Active Protocol: Document 07/18/19 17:03 AW (Rec: 07/18/19 17:25 AW [id number]) Orientation Orientation/Cognition Level of Alertness Alert Orientation Name,Date,Place,Situation Language Function Ability No Deficits Noted Safety Awareness Understands Safety Issues Memory Description No Deficits Noted Gross Range of Motion Upper Extremity ROM Assessment Within Functional Limits Lower Extremity ROM Assessment Within Functional Limits Strength Upper Extremity Strength Assessment Within Functional Limits Lower Extremity Strength Assessment Within Functional Limits Comments Strength Comments Pt able to move against gravity. Resisted strength testing not undertaken due to severity of groin pain. Coordination Assessment Gross Coordination Gross Coordination WNL Sensation Assessment Sensation Gross Sensation WNL Muscle Tone Muscle Tone WNL Yes M6 PT-IP Treatment Start: 07/18/19 16:38 Freq: NEEDED Status: Active Protocol: Document 07/20/19 16:45 AW (Rec: 07/20/19 16:55 AW [id number]) Physical Therapy Treatment Education Education Provided Safety Other Treatments Other Treatment Performed Continued need for SBA with all mobility due to pain medications M7 PT-IP Assessment and Plan Start: 07/18/19 16:38 Freq: NEEDED Status: Active Protocol: Document 07/20/19 16:45 AW (Rec: 07/20/19 16:55 AW [id number]) PT Summary Assessment and Plan Summary Assessment Summary Pt required similar level of assist compared with eval 2 days ago, but was able to progress gait distance with slightly less pain. Unable to tolerate upright sitting or full extension in standing due to pain. Goals Bed Mobility Goal Independent Transfer Goal Independent Gait Goal Independent Gait Distance 100 Days to Meet Goals 4 Frequency of Treatment Frequency Of Treatment Once a Day Treatment Plan Other Recommendations and Next Treatment Progress ambulation, attempt Focus postural correction in standing if tolerated. Attempt stairs since pt will only stay with mom for 1-2 days and will need to navigate stairs on return to his home Recommendations To Nursing Amount of Assist Needed Independent Discharge Recommendations PT Discharge Recommendations Home with Assistance Other Discharge Recommendations Home to mother's house for increased level of assist
[2019-07-20] MEDS: SENNOSIDES 8.6 MG TABLET 17.2 MG PO (22:46)
[2019-07-21] MEDS: ACETAMINOPHEN 325 MG TABLET 650 MG PO ×5 (00:48→23:57)
[2019-07-21 03:41] VITALS: BP 117/71; PULSE 74; RESP 16; TEMP 36.8; O2SAT 100
[2019-07-21] MEDS: CEFTRIAXONE 2 GM/50 ML FROZ.PIGGY IV (03:43)
[2019-07-21] MEDS: HYDROMORPHONE 2 MG TABLET PO ×6 (03:48→23:57)
[2019-07-21] MEDS: HYDROMORPHONE 1 MG INJ IV ×5 (04:00→21:51)
[2019-07-21] MEDS: SODIUM CHLORIDE 0.9% FLUSH 10 ML IV ×3 (04:03→21:52)
--- NOTE | 2019-07-21 04:57 | PC.NURSE ---
Pt has had a tough time with pain control tonight 07/20. Icepack was applied, and Nik PLUNKETT dc'd toradol and ordered Q8 ibuprofen for inflammation. Lung sounds clear bilaterally, VSS, no nausea. SCD's applied this night, pt wanted them for distraction.
[2019-07-21] MEDS: IBUPROFEN 400 MG TABLET 800 MG PO ×3 (05:39→21:51)
[2019-07-21 05:57] LABS: Add Manual Diff / Slide Review NO; Basophils Absolute Auto 0 /uL (0-100); Basophils Percent Auto 0.6 % (0-2); Eosinophils Absolute Auto 600 /uL (0-450); Eosinophils Percent Auto 10.5 % (2-4); Hematocrit 43.2 % (41-53); Hemoglobin 14.7 g/dL (13.5-17.5); Lymphocytes Absolute Auto 1900 /uL (1100-4500); Lymphocytes Percent Auto 31.9 % (25-40); Mean Corpuscular Hemoglobin 30.2 PG (26-34); Mean Corpuscular Volume 88.8 fL (80-100); Monocytes Absolute Auto 600 /uL (0-900); Monocytes Percent Auto 9.2 % (3-14); Neutrophils Absolute Auto 2800 /uL (1500-7000); Neutrophils Percent Auto 47.8 % (50-75); Platelet Count 294 X10^3/uL (150-400); Red Blood Cell Count 4.86 X10^6/uL (4.5-5.9); Red Cell Distribution Width 12.1 % (11.6-14.8)
[2019-07-21 06:13] LABS: BUN Creatinine Ratio 28.6 (6-22); Blood Urea Nitrogen 20 mg/dL (9-20); Carbon Dioxide 30 mmol/L (22-32); Chloride 99 mmol/L (98-107); Estimated Glomerular Filt Rate > 60.0 mL/min (>60); Glucose 88 mg/dL (70-100); HEMOLYSIS < 15 (0-50); Potassium 4.2 mmol/L (3.4-5.1); Sodium 140 mmol/L (137-145)
[2019-07-21] MEDS: METHOCARBAMOL 500 MG TABLET 750 MG PO ×3 (07:59→19:52)
[2019-07-21] MEDS: DOCUSATE 100 MG CAPSULE PO ×2 (07:59→19:44)
[2019-07-21 08:00] VITALS: BP 137/78; PULSE 83; RESP 16; TEMP 36.7; O2SAT 100
--- NOTE | 2019-07-21 08:42 | PM.PN.1 ---
Subjective Subjective Date Patient Seen: 07/21/19 Time Patient Seen: 08:43 Interval history: Continues to report significant right groin and left testicular pain. No nausea vomiting fever. Exam Vital Signs (past 8 hours): - 07/21/19 03:41 Temperature 98.2 F Pulse Rate 74 Respiratory Rate 16 Blood Pressure 117/71 Pulse Oximetry 100 Oxygen Delivery Method Room Air Oxygen Flow Rate 0 Narrative Exam Narrative: General adult male alert oriented no acute distress Abdomen soft nontender nondistended. Right inguinal incision clean dry intact no fluctuance no drainage the cellulitis tender to palpation. Left testicle tender to palpation, no masses non swollen. Objective Labs Result Diagrams: 07/21/19 05:35 07/21/19 05:35 Labs: Laboratory Results - last 24 hr 07/21/19 07/21/19 05:35 05:35 WBC 6.0 RBC 4.86 Hgb 14.7 Hct 43.2 MCV 88.8 MCH 30.2 MCHC 34.0 RDW 12.1 Plt Count 294 Neut % (Auto) 47.8 L Lymph % (Auto) 31.9 [place] % (Auto) 9.2 Eos % (Auto) 10.5 H Baso % (Auto) 0.6 Neut # (Auto) 2800 Lymph # (Auto) 1900 [place] # (Auto) 600 Eos # (Auto) 600 H Baso # (Auto) 0 Sodium 140 Potassium 4.2 Chloride 99 Carbon Dioxide 30 BUN 20 Creatinine 0.70 Estimated GFR > 60.0 BUN/Creatinine Ratio 28.6 H Glucose 88 Calcium 10.0 Assessment & Plan Assessment & Plan narrative: 19-year-old male 2 weeks status post open right inguinal hernia repair with mesh for a traumatic inguinal hernia. Admitted with intractable right groin and left testicular pain for the past 6 days. I have reviewed his workup including 2 CTs of his abdomen pelvis and ultrasound of his scrotum and laboratory studies. The CT shows no evidence of recurrent hernia there is no abscess there is some simple fluid within the right inguinal canal expected in the postoperative period his laboratory studies have never been abnormal and his surgical incision is intact, without drainage or cellulitis. The ultrasound demonstrates good blood flow to both testicles with mild inflamation of both testicles, for which the diagnosis of orchitis was raised and he has been receiving antibiotic therapy since admission. His urinary studies are normal including gonorrhea and chlamydia I have had my surgical partner examine him and review his case in addition to a consulting urologist and despite this no good explanation for his continued pain has surfaced. Per the patient's mother he has a history of narcotic substance abuse. Pain control has been attempted with IV and PO dilaudid,oxycodone, toradol, gabentin, flexeril, tylenol, ice, scrotal support and none have been satisfactory for the patient. I have contacted Dr. Sanchez of Pain Management to consult on the patient as I am unsure how to best manage his pain control going forward. Quality VTE Deep Vein Thrombosis/Pulmonary Embolism Present on Admission: No
--- NOTE | 2019-07-21 09:30 | PT.IPTN ---
Current Diagnoses Orchitis (07/17/19) Unspecified abdominal pain (07/17/19) Pain, unspecified (07/17/19) Encounter for follow-up examination after completed treatment for conditions other than malignant neoplasm (07/17/19) Physical Therapy Treatment Note M2 PT-IP Current Condition Start: 07/18/19 16:38 Freq: NEEDED Status: Active Protocol: Document 07/18/19 17:03 AW (Rec: 07/18/19 17:25 AW [id number]) Physical Therapy Current Condition Current Condition Evaluation Date 07/18/19 Treatment Diagnosis left testicular pain s/p R inguinal hernia repair, difficulty walking Onset Date 07/16/19 Weight Bearing Status Weight Bearing Status Full Weight Bearing M3 PT-IP Subjective Start: 07/18/19 16:38 Freq: NEEDED Status: Active Protocol: Document 07/21/19 09:30 GGD (Rec: 07/21/19 12:22 GGD [id number]) Subjective Physical Therapy Visit Type Type Treatment Note Visit Start Time 09:05 Visit Stop Time 09:28 Total Visit Minutes 23 Number of BATCH OR CONTINUOUS STILL OPERATOR Visits 1 Physical Therapy Visit Comments Patient Comments Pt up to bathroom. Therapy Pain Assessment Pain When Pain Assessed During Mobility Pain Present Pain Present Pain Reported Location Groin Intensity 9 Scale Used Numeric (1 - 10) Pain Behaviors Guarding,Holding Area M4 PT-IP Mobility and Gait Start: 07/18/19 16:38 Freq: NEEDED Status: Active Protocol: Document 07/21/19 09:30 GGD (Rec: 07/21/19 12:22 GGD [id number]) PT-Bed Mobility Assessment Sit to Supine Sit to Supine Standby Assistance Scooting Scooting to Edge of Bed Standby Assistance Scooting Up and Down in Bed Standby Assistance PT-Transfer Assessment Sit to and From Stand Sit to and from Stand Standby Assistance Equipment Transfer Assistive Device Gait Belt Orthotic/Prosthetic Devices or Brace: No Transfers Transfer Destination Chair Transfer Technique Stand Step Pivot Transfer Ability Level of Assist Standby Assistance,Contact Guard Assistance Gait Assessment Gait Gait Assistance Required: Standby Assistance,Contact Guard Assist Distance (Feet) 170 Assistive Devices Assistive Device Gait Belt Orthotic/Prosthetic Devices or Brace: No Gait Deviations General Gait Pattern Antalgic,Decreased Stride Length,Flexed Trunk Factors Limiting Gait Function Factors Limiting Gait Function Pain Stair Climbing Assessment Evaluation Level of Assist On Stairs Standby Assistance Devices Stair Climbing Assistive Devices Right Railing Technique/Endurance Stair Climbing Direction Ascend and Descend Stair Climbing Technique Step to Step Number of Steps Climbed 3 Stair Climbing Set # Repetitions (reps) 1 M5 PT-IP Objective Assessments Start: 07/18/19 16:38 Freq: NEEDED Status: Active Protocol: Document 07/18/19 17:03 AW (Rec: 07/18/19 17:25 AW [id number]) Orientation Orientation/Cognition Level of Alertness Alert Orientation Name,Date,Place,Situation Language Function Ability No Deficits Noted Safety Awareness Understands Safety Issues Memory Description No Deficits Noted Gross Range of Motion Upper Extremity ROM Assessment Within Functional Limits Lower Extremity ROM Assessment Within Functional Limits Strength Upper Extremity Strength Assessment Within Functional Limits Lower Extremity Strength Assessment Within Functional Limits Comments Strength Comments Pt able to move against gravity. Resisted strength testing not undertaken due to severity of groin pain. Coordination Assessment Gross Coordination Gross Coordination WNL Sensation Assessment Sensation Gross Sensation WNL Muscle Tone Muscle Tone WNL Yes M6 PT-IP Treatment Start: 07/18/19 16:38 Freq: NEEDED Status: Active Protocol: Document 07/21/19 09:30 GGD (Rec: 07/21/19 12:22 GGD [id number]) Physical Therapy Treatment Education Education Provided Safety Other Treatments Other Treatment Performed Standing hip extension with knee bent. M7 PT-IP Assessment and Plan Start: 07/18/19 16:38 Freq: NEEDED Status: Active Protocol: Document 07/21/19 09:30 GGD (Rec: 07/21/19 12:22 GGD [id number]) PT Summary Assessment and Plan Summary Assessment Summary Pt able to progress gait distance and stair mobility. He is limit in mobility by pain and unable to spring layer full upright posture. He was able to do standing hip extension with flexed trunk. Frequency of Treatment Frequency Of Treatment Once a Day Recommendations To Nursing Amount of Assist Needed Independent Discharge Recommendations PT Discharge Recommendations Home with Assistance Other Discharge Recommendations Home to mother's house for increased level of assist
[2019-07-21] MEDS: diazePAM 5 MG TABLET PO ×3 (09:47→23:57)
[2019-07-21 12:00] VITALS: BP 120/96; PULSE 97; RESP 18; TEMP 36.8; O2SAT 100
--- NOTE | 2019-07-21 12:11 | PC.NURSE ---
Day Shift Note Pt reports pain to groin 9/10 majority of shift. Receiving Dilaudid PO and IV for pain control as well as scheduled methocarbamol, ibuprofen, Tylenol, and gabapentin. Ice pack in place and pt guarding groin area with hand continuously. Scrotum supported with washcloth while in bed - pt reports mother is going to bring in jock strap today. Up walking in halls with PT, unable to stand up straight due to pain. Yellow bruising noted along groin/inner thighs, glued incision to right groin with well-approximated edges, no drainage. No erythema noted. Pt reports swelling feels about the same. Alert and oriented. RA with oxygen sats in the upper 90s. Eating meals without issue. Call light within reach.
--- NOTE | 2019-07-21 12:40 | CM.DPC ---
DCP Cont: YESENIA spoke to pt's Surgeon who continues to try to identify source of pt's pain and has consulted Urology and his fellow surgeon as today placed call to the Pain Clinic and requested Dr. Sanchez to do a Consult for pain management issues. Per Hospitalist, also continuing to identify source of pain issues. MD to begin titrating pt's pain medication today with ice and elevation and scans do not seem to be showing nerve issues and hematoma does not seem to be source of the pain. YESENIA spoke to pt's mother regarding above information as she had concerns that there is something medically being missed that is the cause of pt's pain and is concerned with pt being discharged too soon. Mother feels that this is abnormal for her son and that he is wanting to d/c home and back to his baseline but is fearful that something medically is wrong with him. Mother planning to be bedside for Pain Consult and further discussion with MDs as she is an [employer] with medical training and understanding. Mother continues to plan to have pt d/c to her home for assist when medically stable. Plan: YESENIA to follow closely after Pain Consult with Dr. Sanchez and attempt at titrating pt's current pain medications. JIMENEZ Armando
[2019-07-21] MEDS: levoFLOXacin 500 MG/100 ML PIGGYBACK 100 MG IV (12:41)
[2019-07-21] MEDS: GABAPENTIN 300 MG CAPSULE PO ×2 (14:17→19:44)
--- NOTE | 2019-07-21 14:59 | P.PN_ITS ---
<Deejay Umanzor MD - Last Filed: 07/22/19 09:18> Vital Signs (past 8 hours): - 07/21/19 08:00 07/21/19 12:00 Temperature 98.1 F 98.2 F Pulse Rate 83 97 H Respiratory Rate 16 18 Blood Pressure 137/78 120/96 H Pulse Oximetry 100 100 Oxygen Delivery Method Room Air Oxygen Flow Rate 0 Objective <Kael Aguilar MD - Last Filed: 07/21/19 15:51> Labs Result Diagrams: 07/22/19 06:45 07/22/19 06:45 <Deejay Umanzor MD - Last Filed: 07/22/19 09:18> Labs Labs: Laboratory Results - last 24 hr 07/21/19 07/21/19 05:35 05:35 WBC 6.0 RBC 4.86 Hgb 14.7 Hct 43.2 MCV 88.8 MCH 30.2 MCHC 34.0 RDW 12.1 Plt Count 294 Neut % (Auto) 47.8 L Lymph % (Auto) 31.9 [place] % (Auto) 9.2 Eos % (Auto) 10.5 H Baso % (Auto) 0.6 Neut # (Auto) 2800 Lymph # (Auto) 1900 [place] # (Auto) 600 Eos # (Auto) 600 H Baso # (Auto) 0 Sodium 140 Potassium 4.2 Chloride 99 Carbon Dioxide 30 BUN 20 Creatinine 0.70 Estimated GFR > 60.0 BUN/Creatinine Ratio 28.6 H Glucose 88 Calcium 10.0 <Deejay Umanzor MD - Last Filed: 07/22/19 09:18> VTE Deep Vein Thrombosis/Pulmonary Embolism Present on Admission: No
[2019-07-21 15:30] VITALS: BP 114/75; PULSE 83; RESP 18; TEMP 36.7; O2SAT 99
--- NOTE | 2019-07-21 17:35 | PM.PN.1 ---
Subjective Subjective Date Patient Seen: 07/21/19 Time Patient Seen: 10:15 Interval history: He is seen today to follow-up his postoperative right inguinal hernia hemorrhage, right testicular orchitis and epididymitis. He continues on ceftriaxone and levaquin after failing to improve with levofloxacin orally as an outpatient. He continues to have significant testicular/scrotal and right inguinal pain. His swelling has improved but he still has significant pain and states that he requires IV medications control it. Spoke with physical therapy who said his pain was possibly inconsistent between separate movements. Discussed the case with Dr. Aguilar from surgery who contacted Dr. Sanchez of pain management who will see the patient in the morning. Exam Vital Signs (past 8 hours): - 07/21/19 12:00 07/21/19 15:30 Temperature 98.2 F 98.1 F Pulse Rate 97 H 83 Respiratory Rate 18 18 Blood Pressure 120/96 H 114/75 Pulse Oximetry 100 99 Oxygen Delivery Method Room Air Oxygen Flow Rate 0 Narrative Exam Narrative: GENERAL APPEARANCE: Well developed, well nourished, grimacing from pain while sitting upright. SKIN: Inspection of the skin reveals no rashes, ulcerations or petechiae. HEENT: The sclerae were anicteric and conjunctivae were pink and moist. Extraocular movements were intact and pupils were equal, round with normal accommodation. External inspection of the ears and nose showed no scars, lesions, or masses. Lips, teeth, and gums showed normal mucosa. The oral mucosa, hard and soft palate, tongue and posterior pharynx were unremarkable. NECK: Supple and symmetric. There was no thyroid enlargement, and no tenderness, or masses were felt. CHEST: Normal AP diameter and normal contour without any kyphoscoliosis. LUNGS: Auscultation of the lungs revealed no wheezes, rhonchi, or rales. CARDIOVASCULAR: There was a regular rate and rhythm without any murmurs, gallops, rubs. Peripheral pulses were 2+ and symmetric. ABDOMEN: Soft and nontender with normal bowel sounds. No ascites was noted. Noted improvement in swelling and erythema of his scrotum, improved tenderness on L side. MUSCULOSKELETAL: There was no tenderness or effusions noted. Muscle strength and tone were normal. EXTREMITIES: No cyanosis, clubbing or edema. NEUROLOGIC: Alert and oriented x 3. Normal affect. Strength is +5/5 in the Upper Extremities and Lower Extremities Bilaterally. Sensation to touch was normal. Objective Labs Result Diagrams: 07/21/19 05:35 07/21/19 05:35 Labs: Laboratory Results - last 24 hr 07/21/19 07/21/19 05:35 05:35 WBC 6.0 RBC 4.86 Hgb 14.7 Hct 43.2 MCV 88.8 MCH 30.2 MCHC 34.0 RDW 12.1 Plt Count 294 Neut % (Auto) 47.8 L Lymph % (Auto) 31.9 [place] % (Auto) 9.2 Eos % (Auto) 10.5 H Baso % (Auto) 0.6 Neut # (Auto) 2800 Lymph # (Auto) 1900 [place] # (Auto) 600 Eos # (Auto) 600 H Baso # (Auto) 0 Sodium 140 Potassium 4.2 Chloride 99 Carbon Dioxide 30 BUN 20 Creatinine 0.70 Estimated GFR > 60.0 BUN/Creatinine Ratio 28.6 H Glucose 88 Calcium 10.0 Assessment & Plan Assessment & Plan narrative: This is a 19-year-old male patient who was approximately 10 days postop right inguinal hernia repair following a traumatic injury while skateboarding. The patient was seen in the ER on 07/10 for constipation and was having suprapubic pain and art-incisional pain at that time with abdominal pain greater than testicular pain, he is currently being managed for orchitis and is being treated with ceftriaxone and Levaquin. His pain may be due to a nerve entrapment however this is unclear and based on exam his swelling has improved. We have consulted pain management to look at possible control options including nerve block, and other outpatient control options. 1. Acute Epididymitis/orchitis, present on admission, active -Ultrasound found no torsion with symmetric blood flow in both testes and hyperemic appearance, possible epididymitis. -he has been on ceftriaxone and Levaquin 500 mg IV daily will be added.. -patient has Dilaudid 1 mg every 4 hours as needed for pain and Toradol 30 mg IV every 6 hours as needed. Continue oral dilaudid tonight to see if improvement can last longer. -Zofran 4 mg IV as needed for nausea -scrotal support and elevation -no need for bed rest, needs PT evaluation. -Urology contacted, recommended scrotal elevation and ice packs, but he is on appropriate therapy and have no further recommendations. -f/u Pain management recommendations. 2. Acute Right groin cellulitis, present on admission, active -swelling and pain over the suprapubic, bilateral groin and perineum with enlarged tender inguinal lymph nodes. -CT scan repeated 07/18 showed continued fluid/edema of the right inguinal canal extending into the scrotum. No obvious abscess. -pain control as above. -General surgery notes are appreciated 3. Acute medication induced constipation, present on admission, active -a large amount of stool remains in the colon on CT today per -bowel regimen with Doculax 100 mg twice daily, senna at bedtime and Dulcolax suppository and MiraLax as needed. DVT: SCD Code: full Dispo: pending appropriate pain control and pain management consult. Plan for discharge tomorrow. Quality VTE Deep Vein Thrombosis/Pulmonary Embolism Present on Admission: No
[2019-07-21 19:34] VITALS: BP 129/90; PULSE 76; RESP 16; TEMP 36.6; O2SAT 100
[2019-07-21] MEDS: SENNOSIDES 8.6 MG TABLET 17.2 MG PO (19:53)
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
[2019-07-22] VITALS: BP 139/69; PULSE 90; RESP 16; TEMP 36.1; O2SAT 100
[2019-07-22] MEDS: SODIUM CHLORIDE 0.9% FLUSH 10 ML IV ×3 (03:58→21:09)
[2019-07-22] MEDS: CEFTRIAXONE 2 GM/50 ML FROZ.PIGGY IV (03:58)
[2019-07-22] MEDS: HYDROMORPHONE 2 MG TABLET PO ×4 (03:58→15:57)
[2019-07-22 04:00] VITALS: BP 102/88; PULSE 109; RESP 16; TEMP 36.4; O2SAT 94
[2019-07-22] MEDS: ACETAMINOPHEN 325 MG TABLET 650 MG PO ×3 (06:23→17:39)
[2019-07-22] MEDS: diazePAM 5 MG TABLET PO ×3 (06:23→17:40)
[2019-07-22] MEDS: IBUPROFEN 400 MG TABLET 800 MG PO ×3 (06:24→21:08)
[2019-07-22] MEDS: HYDROMORPHONE 1 MG INJ IV ×2 (06:26→09:55)
--- NOTE | 2019-07-22 06:35 | PC.NURSE ---
Shift note: Pt continues to struggle with pain management despite on time administration of scheduled APAP and Ibuprofen and PRN 2mg PO dilaudid and required additional breakthrough 1mg IV Diludid to manage pain. At time of IV administration, pt was clearly in distress and attempting to breath deep to tolerate his pain. Pt is concerned and anxious about being discharged without a clear picture of the cause of his pain and management options. Assured pt that he would be an active part of the discharge planning and that providers would be aware of his pain needs.
[2019-07-22 07:08] LABS: Add Manual Diff / Slide Review NO; Basophils Absolute Auto 0 /uL (0-100); Basophils Percent Auto 0.3 % (0-2); Eosinophils Absolute Auto 0 /uL (0-450); Eosinophils Percent Auto 0.1 % (2-4); Hematocrit 46.9 % (41-53); Hemoglobin 16.1 g/dL (13.5-17.5); Lymphocytes Absolute Auto 1000 /uL (1100-4500); Lymphocytes Percent Auto 15.2 % (25-40); Mean Corpuscular HGB Conc 34.4 % (30-36); Mean Corpuscular Hemoglobin 30.2 PG (26-34); Mean Corpuscular Volume 87.9 fL (80-100); Monocytes Absolute Auto 100 /uL (0-900); Monocytes Percent Auto 1.7 % (3-14); Neutrophils Absolute Auto 5400 /uL (1500-7000); Neutrophils Percent Auto 82.7 % (50-75); Platelet Count 398 X10^3/uL (150-400); Red Blood Cell Count 5.34 X10^6/uL (4.5-5.9); Red Cell Distribution Width 12.6 % (11.6-14.8); White Blood Cell Count 6.5 X10^3/uL (4.5-11.0)
[2019-07-22 07:35] LABS: Blood Urea Nitrogen 12 mg/dL (9-20); Calcium 11.2 mg/dL (8.4-10.2); Carbon Dioxide 26 mmol/L (22-32); Chloride 98 mmol/L (98-107); Estimated Glomerular Filt Rate > 60.0 mL/min (>60); Glucose 127 mg/dL (70-100); HEMOLYSIS < 15 (0-50); Potassium 4.5 mmol/L (3.4-5.1); Sodium 142 mmol/L (137-145)
[2019-07-22] MEDS: METHOCARBAMOL 500 MG TABLET 750 MG PO ×3 (08:03→21:07)
[2019-07-22] MEDS: DOCUSATE 100 MG CAPSULE PO ×2 (08:03→21:09)
[2019-07-22] MEDS: GABAPENTIN 600 MG TABLET PO ×3 (08:04→21:08)
[2019-07-22 09:00] VITALS: BP 120/82; PULSE 100; RESP 18; TEMP 36.8; O2SAT 100
[2019-07-22] MEDS: methylPREDNISolone 125 MG/2 ML VIAL 80 MG IV (09:29)
[2019-07-22] MEDS: LIDOCAINE 1% 20 ML 10 ML INJ (09:58)
[2019-07-22] MEDS: TRIAMCINOLONE 40 MG/ML VIAL IM (10:00)
--- NOTE | 2019-07-22 10:06 | PC.NURSE ---
1000 Pt med with dilaudid 1mg IVP prior to Dr Aguilar injecting Kenalog and lidocaine to Pt inc site. Pt conner well, c/o continued pain. Pt encouraged to breath slow, deep breaths, close eyes, relax. 1010 Pt resting quietly in bed, is using his telephone. SR up for safety after pain med.
--- NOTE | 2019-07-22 11:40 | PT-IP ANOTE ---
Pt refused any mobility, due to increase in pain after injection and having a migraine.
[2019-07-22] MEDS: levoFLOXacin 500 MG/100 ML PIGGYBACK 100 MG IV (12:09)
--- NOTE | 2019-07-22 12:17 | P.PN_ITS ---
Subjective Subjective Date Patient Seen: 07/22/19 Time Patient Seen: 11:10 Interval history: He is seen today to follow-up his postoperative right inguinal hernia hemorrhage, right testicular orchitis and epididymitis. He continues on ceftriaxone and levaquin after failing to improve with levofloxacin orally as an outpatient. He continues to complain of significant scrotal pain. Per reports from physical therapy his pain appears to be inconsistent on physical movements, and per nursing staff he appears to be well when not being directly observed by healthcare professionals as he took a shower without significant reported pain earlier in the day. He has been tracking which medications are given to him and at which time so that he knows exactly when his next IV medication can be given. He seemingly sleeps without much pain at all, and if this were due to an underlying nerve entrapment, immune reaction to mesh, or orchitis with need for IV Dilaudid multiple times per day this does not seem consistent with imaging findings. Also upon entering the room he is also on his phone and seemingly not much pain at all. But when we enter he starts to grimace in pain. Dr. Aguilar initially talked with me today and discuss the possibility of an exploration, however after discussing with his partners he decided against this given the above history. I expressed concerns about potential pain seeking behavior to the patient's mother, and she is adamant that his pain is real. I would like to further discuss the case with Dr. Sanchez but he has been unavailable this afternoon doing procedures. I further talked about the possibility of discharge home however the mother became upset with this and would appeal any discharged home at this time. Exam Vital Signs (past 8 hours): - 07/22/19 09:00 Temperature 98.3 F Pulse Rate 100 H Respiratory Rate 18 Blood Pressure 120/82 Pulse Oximetry 100 Oxygen Delivery Method Room Air Oxygen Flow Rate 0 Narrative Exam Narrative: GENERAL APPEARANCE: Well developed, well nourished, grimacing from pain while sitting upright. SKIN: Inspection of the skin reveals no rashes, ulcerations or petechiae. HEENT: The sclerae were anicteric and conjunctivae were pink and moist. Extraocular movements were intact and pupils were equal, round with normal accommodation. External inspection of the ears and nose showed no scars, le sions, or masses. Lips, teeth, and gums showed normal mucosa. The oral mucosa, hard and soft palate, tongue and posterior pharynx were unremarkable. NECK: Supple and symmetric. There was no thyroid enlargement, and no tenderness, or masses were felt. CHEST: Normal AP diameter and normal contour without any kyphoscoliosis. LUNGS: Auscultation of the lungs revealed no wheezes, rhonchi, or rales. CARDIOVASCULAR: There was a regular rate and rhythm without any murmurs, gallops, rubs. Peripheral pulses were 2+ and symmetric. ABDOMEN: Soft and nontender with normal bowel sounds. No ascites was noted. Noted improvement in swelling and erythema of his scrotum, improved tenderness on L side. MUSCULOSKELETAL: There was no tenderness or effusions noted. Muscle strength and tone were normal. EXTREMITIES: No cyanosis, clubbing or edema. NEUROLOGIC: Alert and oriented x 3. Normal affect. Strength is +5/5 in the Upper Extremities and Lower Extremities Bilaterally. Sensation to touch was normal. Objective Labs Result Diagrams: 07/22/19 06:45 07/22/19 06:45 Labs: Laboratory Results - last 24 hr 07/22/19 07/22/19 06:45 06:45 WBC 6.5 RBC 5.34 Hgb 16.1 Hct 46.9 MCV 87.9 MCH 30.2 MCHC 34.4 RDW 12.6 Plt Count 398 Neut % (Auto) 82.7 H D Lymph % (Auto) 15.2 L [place] % (Auto) 1.7 L Eos % (Auto) 0.1 L Baso % (Auto) 0.3 Neut # (Auto) 5400 Lymph # (Auto) 1000 L [place] # (Auto) 100 Eos # (Auto) 0 Baso # (Auto) 0 Sodium 142 Potassium 4.5 Chloride 98 Carbon Dioxide 26 BUN 12 Creatinine 0.60 L Estimated GFR > 60.0 BUN/Creatinine Ratio 20.0 Glucose 127 H Calcium 11.2 H Assessment & Plan Assessment & Plan narrative: This is a 19-year-old male patient who was approximately 10 days postop right inguinal hernia repair following a traumatic injury while skateboarding. The patient was seen in the ER on 07/10 for constipation and was having suprapubic pain and art-incisional pain at that time with abdominal pain greater than testicular pain, he is currently being managed for orchitis and is being treated with ceftriaxone and Levaquin. We have exhausted all possible medical options at this point for controlling his pa in, and surgery does not want to pursue any operative interventions. We spoke with the urologist yesterday, who had also no further recommendations. I believe a conference between surgery, pain management and medicine will be needed in order to come up with an adequate care plan for this patient at home. As of now the patient states that he would just return to the emergency room with severe pain after being discharged. 1. Acute Epididymitis/orchitis, present on admission, active -Ultrasound found no torsion with symmetric blood flow in both testes and hyperemic appearance, possible epididymitis. -he has been on ceftriaxone and levaquin, however the combination has not improved his pain significantly so I do not believe this to be the source of his pain. Consider cessation of antibiotics completely, however at this time pending resolution of his pain I will continue this therapy. -I will try and optimize his pain medication, including opiate therapy to assist satisfactory level. The goal is for outpatient treatment and therefore I do not believe any additional IV therapy should be given at this time. I will try oxycodone 10 mg as needed along with his other current regimen. I will hold the oral Dilaudid and IV Dilaudid. -Zofran 4 mg IV as needed for nausea -scrotal support and elevation -continue physical therapy -Urology contacted, recommended scrotal elevation and ice packs, but he is on appropriate therapy and have no further recommendations. -appreciate pain management recommendations. 2. Acute Right groin cellulitis, present on admission, active -swelling and pain over the suprapubic, bilateral groin and perineum with enlarged tender inguinal lymph nodes. -CT scan repeated 07/18 showed continued fluid/edema of the right inguinal canal extending into the scrotum. No obvious abscess. -pain control as above. -General surgery notes are appreciated 3. Acute medication induced constipation, present on admission, active -a large amount of stool remains in the colon on CT today per -bowel regimen with Doculax 100 mg twice daily, senna at bedtime and Dulcolax suppository and MiraLax as needed. DVT: SCD Code: full Dispo: Remained inpatient. Quality VTE Deep Vein Thrombosis/Pulmonary Embolism Present on Admission: No
--- NOTE | 2019-07-22 14:45 | PC.NURSE ---
1430 Pt cont to rest in bed, has friend and family at bedside. Pt cont to c/o groin pain, 5-10. Pt requests pain meds throughout the day. Pt states very little relief. MDs aware of Pt complaints. Pt did shower and be up in chair this AM. Denies need for SCD , Pt states I am active enough. Pt not wearing jock strap, has on loose fitting underwear. Pt voiding, had a BM this AM.
--- NOTE | 2019-07-22 15:10 | PM.PN.1 ---
Subjective Subjective Date Patient Seen: 07/22/19 Time Patient Seen: 08:03 Interval history: Continued right inguinal pain and left testicular pain. Requiring IV Dilaudid overnight for pain control. Tolerating diet without nausea vomiting. Exam Vital Signs (past 8 hours): - 07/22/19 09:00 Temperature 98.3 F Pulse Rate 100 H Respiratory Rate 18 Blood Pressure 120/82 Pulse Oximetry 100 Oxygen Delivery Method Room Air Oxygen Flow Rate 0 Narrative Exam Narrative: General adult male alert oriented no acute distress. Abdomen soft nontender nondistended. Right inguinal incision clean dry intact no drainage no cellulitis no fluctuance. Tender along the right inguinal incision and along the right cord. Right testicle minimally tender to palpation. Left testicle tender to palpation no swelling. Objective Labs Result Diagrams: 07/22/19 06:45 07/22/19 06:45 Labs: Laboratory Results - last 24 hr 07/22/19 07/22/19 06:45 06:45 WBC 6.5 RBC 5.34 Hgb 16.1 Hct 46.9 MCV 87.9 MCH 30.2 MCHC 34.4 RDW 12.6 Plt Count 398 Neut % (Auto) 82.7 H D Lymph % (Auto) 15.2 L [place] % (Auto) 1.7 L Eos % (Auto) 0.1 L Baso % (Auto) 0.3 Neut # (Auto) 5400 Lymph # (Auto) 1000 L [place] # (Auto) 100 Eos # (Auto) 0 Baso # (Auto) 0 Sodium 142 Potassium 4.5 Chloride 98 Carbon Dioxide 26 BUN 12 Creatinine 0.60 L Estimated GFR > 60.0 BUN/Creatinine Ratio 20.0 Glucose 127 H Calcium 11.2 H Assessment & Plan Assessment & Plan narrative: 19-year-old male 2 weeks status post open right inguinal hernia repair for traumatic hernia admitted to the hospital for intractable pain. Spoke with Dr. Sanchez of physiatry who evaluated the patient yesterday and his recommendations are appreciated. I began the patient on 80 mg of Solu-Medrol last night another dose of 80 mg this morning with no affect in his on his pain. In addition I increased the gabapentin from 300 mg t.i.d. to 600 mg t.i.d. without effect. Additionally I injected 40 mg Kenalog mixed one-to-one with 1% lidocaine in a ilioinguinal block and infiltration of the right inguinal canal. The patient reports no change in his pain along the right groin and denies any numbness which is unusual. I reviewed notes from physical therapy stating that he was unable to participate in therapy secondary to pain yet was able to take a shower last night unassisted. I am unable to explain his current pain of the left testicle as it is entirely removed from the operative site nor can I explain the severity of the right groin pain. I considered taking the patient back to the operating room for re exploration of the right groin but on review of the imaging and laboratory studies there is no evidence of hernia recurrence or abscess and I think that operating at this time without a clear diagnosis 2 weeks from the initial operation poses greater harm to him then benefit. I discussed this with the patient and he is in agreement. I think the best course of action at this point is to manage his pain with a minimal amount narcotic medication, and anti-inflammatories. Quality VTE Deep Vein Thrombosis/Pulmonary Embolism Present on Admission: No
[2019-07-22 15:56] VITALS: BP 119/79; PULSE 125; RESP 18; TEMP 37.4; O2SAT 100
[2019-07-22] MEDS: OXYCODONE 5 MG/5 ML ORAL SOLUTION 10 MG PO (19:12)
[2019-07-22 19:21] VITALS: BP 152/102; PULSE 119; RESP 18; TEMP 37.2; O2SAT 100
[2019-07-22] MEDS: AMITRIPTYLINE 10 MG TABLET PO (21:08)
[2019-07-22] MEDS: SENNOSIDES 8.6 MG TABLET 17.2 MG PO (21:09)
--- NOTE | 2019-07-22 22:34 | PC.NURSE ---
Pt reports high pain levels despite medicating per mar with all available scheduled and PRN medications. IV upon flushing pt reports pain and requests IV be removed. IV removed. Pt refuses restart of IV states I don't want to have antibiotics because the Doctor told me I don't have an infection. This press writer notified Hospitalist.
--- NOTE | 2019-07-23 03:29 | PC.NURSE ---
Addendum entered by Karen Beckford R.N. 07/23/19 06:04: Entered room at 0600 with solder making laborer to draw am labs, pt was asleep and we woke him up. Asked him if he wanted scheduled APAP and Ibupropen to which pt said yes. Came back into room and pt moaning and hunched over reporting 9/10 pain. I asked pt if he was sure and pt reports that every time I wake up it's a 9/10 pain and I tell him that every time he's been checked on hes been asleep and hasn't called for anything all shift. Lab was unable to draw labs d/t pt's behaviors including shaking, drawing up his body, and shaking. Pt is being very hostile with this RN when trying to assess his pain stating I need to be discharged already and making statements about his care or lack thereof. I educated the pt that he's been asleep the majority of the shift and this was an opportunity to assess his pain and understand it. Asked pt if I could do offer anything else and pt spoke sharply you're not going to give me anything else! and I said that I was just offering it and pt stated I'll take whatever you'll give me. Will medicated with available 10mg liquid oxycodone per MAR. Addendum entered by Karen Beckford R.N. 07/23/19 04:02: At time of physical assessment pt was found to be asleep, was arousable to voice and touch and fell back to asleep easily during assessment. This RN asked pt clearly if he wanted IV access and his ordered antibiotics to which pt declined stating no. He had no complaints at this time. Will continue to allow him to rest with visual checks. Original Note: Shift note: Received pt from evening shift. At change of shift, evening nurse went to the pt's room at a previously agreed upon time (per pt's request) to give him pain medications. At this time the pt was found to be resting comfortably and RN did not want to wake the pt. At this time the pt has been allowed to sleep uninterrupted as it appears that he is resting comfortably, hourly checks have been completed to ensure pt safety. Pt has been turning himself in bed at regular intervals and does not wake to the door being open. This RN will have to wake pt up at 0400 for scheduled meds and verbal refusal of antibiotic as pt had refused IV access on evening shift and said that he would refused antibiotics that were scheduled. Will complete physical assessment at that time.
[2019-07-23 04:15] VITALS: BP 106/54; PULSE 55; RESP 16; TEMP 36.8; O2SAT 97
[2019-07-23] MEDS: IBUPROFEN 400 MG TABLET 800 MG PO (06:03)
[2019-07-23] MEDS: ACETAMINOPHEN 325 MG TABLET 650 MG PO ×2 (06:04→11:59)
[2019-07-23] MEDS: OXYCODONE 5 MG/5 ML ORAL SOLUTION 10 MG PO (06:14)
[2019-07-23 07:56] LABS: Add Manual Diff / Slide Review NO; Basophils Absolute Auto 0 /uL (0-100); Basophils Percent Auto 0.2 % (0-2); Eosinophils Absolute Auto 0 /uL (0-450); Eosinophils Percent Auto 0.1 % (2-4); Hematocrit 44.8 % (41-53); Hemoglobin 15.4 g/dL (13.5-17.5); Lymphocytes Absolute Auto 1700 /uL (1100-4500); Lymphocytes Percent Auto 13.3 % (25-40); Mean Corpuscular HGB Conc 34.4 % (30-36); Mean Corpuscular Hemoglobin 30.4 PG (26-34); Mean Corpuscular Volume 88.5 fL (80-100); Monocytes Absolute Auto 1200 /uL (0-900); Monocytes Percent Auto 9.6 % (3-14); Neutrophils Absolute Auto 9600 /uL (1500-7000); Neutrophils Percent Auto 76.8 % (50-75); Platelet Count 338 X10^3/uL (150-400); Red Blood Cell Count 5.07 X10^6/uL (4.5-5.9); Red Cell Distribution Width 12.5 % (11.6-14.8); White Blood Cell Count 12.5 X10^3/uL (4.5-11.0)
[2019-07-23 09:00] VITALS: BP 152/97; PULSE 84; RESP 18; TEMP 36.6; O2SAT 100
--- NOTE | 2019-07-23 09:17 | PT-IP ANOTE ---
Pt c/o 08/19 testicular pain and chronic migraine. Pt refused to participate with PT.
[2019-07-23] MEDS: DOCUSATE 100 MG CAPSULE PO (09:54)
[2019-07-23] MEDS: GABAPENTIN 600 MG TABLET PO ×2 (09:55→16:22)
[2019-07-23] MEDS: METHOCARBAMOL 500 MG TABLET 750 MG PO ×2 (09:56→16:22)
[2019-07-23] MEDS: POLYETHYLENE GLYCOL 3350 17 GM POWD.PACK PO (10:03)
[2019-07-23] MEDS: TRAMADOL 50 MG TABLET 100 MG PO ×2 (10:51→14:15)
--- NOTE | 2019-07-23 11:23 | P.DS_ITS ---
History of Present Illness History of Present Illness Date Patient Seen: 07/17/19 Chief complaint: ongoing and progressive pain s/p hernia repair Narrative: Written by Montez PLUNKETT: Mr. Mauricio Plascencia is a 19-year-old male with history of a traumatic right inguinal hernia while skateboarding had undergone an open inguinal hernia repair with mesh on 07/06/2019 and returns to the ER today for severe testicular pain. The patient was seen on the night 07/10/2019 constipation secondary to postoperative pain medication. The patient was treated and provided bowel re gimen which is continued to be effective. Patient states he developed sharp aching pain in the left testicle approximately noon yesterday afternoon he states he felt the beginnings of the pain the day previous. He complains of pain around the surgical site in the right groin acute tenderness suprapubic area with ecchymosis resolving over the left groin has ecchymosis of the scrotum and approximately 1 cm of the penile shaft. He also complains of pain in the perineum, but denies pain when passing stool. He reports no fevers or chills but has had shaking that he associated with strong pain. He denies chest pain or palpitations no shortness of breath cough or wheezing has had no nausea vom iting. The patient reports not being sexually active for over a month and that was with a known partner. Reports no penile discharge rash or lesions. Upon arrival in the ER the patient is afebrile with temperature 98.4?, heart rate of 78, blood pressure 154/89, respirations 20 saturating 90% on room air. Patient evaluated with ultrasound for torsion testicle which finds normal symmetric arterial flow in both testes. Also finds hyperemic appearance and possible epididymitis. Further identifies multiple nonspecific fluid collections 12.7 x 2.0 by 0.7 and another complex fluid collection of 2.4 x 1.9 x 1.5 which represents possible hematoma but cannot exclude superimposed infection or abscess. CT identifies reactive inguinal lymph nodes and induration in fluid long spermatic cord. On laboratory analysis the patient has a normal white count of 7.6 with a hemoglobin of 15.2 and hematocrit of 43.2 and platelets of 343. There is no shift present. His electrolytes within normal range and has a BUN of 14 and creatinine 0.6 his nonfasting glucose is 102. Lactate is 1.5. In the ER the patient has required multiple doses of Dilaudid and has received Zofran L bolus of normal saline and started on levofloxacin 500 mg IV. Urology is consulted by the ER with no further recommendation be on antibiotics. Patient is admitted for orchitis, possible prostatitis, possible cellulitis. Discharge Providers Provider Date of admission: 07/17/19 03:04 Discharge Date: 07/23/19 Primary care physician: Ariana Billings DO Consults: 07/17/19 03:43 Consult to Discharge Planning Routine Comment: Consult to Physician Routine Comment: Consulting Provider: Kael Aguilar Reason for consultation: Evaluate for post op complication Has provider been notified: Yes 07/18/19 10:39 Consult to Physical Therapy Evaluate & Treat Comment: Ambulate with assistance if possible. Physician Instructions: Evaluate and Treat Discharge provider: Stephany Acosta DO Summary Hospital Course Hospital Course: Mauricio Plascencia is a 19-year-old male patient who was approximately 10 days postop right inguinal hernia repair following a traumatic injury while skateboarding who was admitted for intractable abdominal and testicular pain and orchitis treated with ceftriaxone and Levaquin. We have exhausted all possible medical options at this point for controlling his pain, and surgery does not want to pursue any operative interventions. [facility] urology was consulted over the phone and also had no further recommendations. Discussed with the patient, his mother, PROGRAM DIRECTOR AIR TALENT and general surgery the patients pain and plan of care in detail. The patient was deemed medically clear for discharge and will follow-up with general surgery in 1 week. The patient will likely pursue mesh removal in 6 months once appropriate. The patient at the end of the discussion expressed some suicidal ideality. The PROGRAM DIRECTOR [employer] met with patient privately and he denies intention or a plan and together developed a saftey plan and provided resources for psychiatric evaluation. 1. Intractable scrotal and groin pain, present on admission. Active. -Patient presented after traumatic right inguinal hernia while skateboarding had undergone an open inguinal hernia repair with mesh on 07/06/2019 and returned with severe intractable testicular pain. -Zofran 4 mg IV as needed for nausea. -Continued conservative treatment with scrotal support and elevation and intermittent icing. -Continued physical therapy. -Urology contacted, recommended scrotal elevation and ice packs, but he is on appropriate therapy and have no further recommendations. -Consulted physiatry, Dr. Sanchez, who recommended continued NSAIDs and conservative management. -Received opiate therapy without relief with both PO and IV therapy, therefore, discontinued. Received inguinal nerve block without improvement and reported worsening by patient which is unexplainable and clearly not neuropathic. Patient at times appeared without pain but then when approached by multiple providers reported severe pain. No objective signs of pain. Possibly psychogenic vs mesh related. The patient was deemed appropriate for discharge and discharged on ce lebrex and tramadol. 2. Possible acute epididymitis/orchitis, present on admission. Resolved. -Ultrasound found no torsion with symmetric blood flow in both testes and hyperemic appearance, possible epididymitis. -Continued empiric ceftriaxone and levaquin for full 7 day course. The patient's pain did not improve, therefore, infection was felt not to be the source of his pain. 3. Acute right groin cellulitis, present on admission. Resolved. -Swelling and pain over the suprapubic, bilateral groin and perineum with enlarged tender inguinal lymph nodes. -CT scan repeated 07/18 showed continued fluid/edema of the right inguinal canal extending into the scrotum. No obvious abscess. -Continued pain control as above. -General surgery consulted as above. -Continued and completed antibiotic course as above. 4. Acute opiate induced constipation, present on admission. Improving. -A large amount of stool remains in the colon on CT abdomen and pelvis with contrast. -Continued bowel regimen with Doculax 100 mg twice daily, Miralax 17 g daily, senna 8.6 g at bedtime, and Dulcolax suppository as needed. Exam Vital Signs (past 8 hours): - 07/23/19 13:00 07/23/19 16:28 Temperature 98.3 F Pulse Rate 94 H 76 Respiratory Rate 18 18 Blood Pressure 156/82 H 161/95 H Pulse Oximetry 98 99 Oxygen Delivery Method Room Air Oxygen Flow Rate 0 Narrative Exam Narrative: General: Young gentleman sitting in bedside chair and in no acute distress, well-developed, well-nourished, withdrawn and irritable. HEENT: Normocephalic, atraumatic. External ears without defect. Pupils equal, round, and reactive to light. Mild headache with photosensitivity. Anicteric sclerae, moist conjunctivae, and no lid lag. Neck: Supple with full range of motion. No jugular venous distension. No bruits. Cardiovascular: Regular rate and rhythm without murmurs, rubs, or gallops appreciated. Pulmonary: Clear to auscultation bilaterally without crackles, wheezes, or rhonchi. Normal respiratory effort with no use of accessory muscles. Abdomen: Soft, bowel sounds present, nontender, nondistended. No hepatosplenomegaly or masses appreciated. Extremities: No clubbing, cyanosis, or edema. Genitourinary: Scrotum not evaluated today. Skin: Normal temperature, turgor, and texture; no rash, ulcers, or subcutaneous nodules appreciated. Neurological: Cranial nerves grossly intact. Psychiatric: Depressed mood and flat affect. Withdrawn and irritable. Appears to be alert and oriented to person, place, and time. Objective Labs Result Diagrams: 07/23/19 05:00 07/22/19 06:45 Labs: Laboratory Results - last 24 hr 07/23/19 05:00 WBC 12.5 H D RBC 5.07 Hgb 15.4 Hct 44.8 MCV 88.5 MCH 30.4 MCHC 34.4 RDW 12.5 Plt Count 338 Neut % (Auto) 76.8 H Lymph % (Auto) 13.3 L [place] % (Auto) 9.6 Eos % (Auto) 0.1 L Baso % (Auto) 0.2 Neut # (Auto) 9600 H Lymph # (Auto) 1700 [place] # (Auto) 1200 H Eos # (Auto) 0 Baso # (Auto) 0 Discharge Plan Discharge Plan Patient Disposition: Home Discharge comment: You are being discharged home. Please follow-up with Dr. Aguilar at [facility] [place] in 1 week. Unfortunately, there is no explanation for your pain. You have no signs of infection but were treated empirically for an infection anyways without improvement. Also a nerve block was provided which did not relieve your pain, therefore, unlikely this is nerve pain or related to the mesh. Continue conservative means of pain management including icing scrotum no more than 20 minutes at a time, elevation of your scrotum, and anti- inflammatories with celecoxib 200 mg daily. Please do not take other NSAIDs (ibuprofen, meloxicam, Aleve, etc.) while using celecoxib. You were also provided prescriptions for gabapentin 600 mg 3 times daily and tramadol 100 mg every 6 hours as needed for pain. Narcotics were discontinued as this is contributing to your constipation evident on both CT scans (which may also be causing some of your discomfort) and has not relieved your pain. You were given prescriptions for Colace (stool softener) and MiraLax (osmotic laxative) to take for the next 1-2 weeks to keep your bowel movements regular and soft. Please follow your safety contract and utilize the resources provided and establish with a psychiatrist as discussed with the medical referral coordinator. Help is always available and if you feel in danger to yourself, suicidal, or homicidal please g o straight to the emergency department or call 911. Discharge Med Rec/Prescriptions Prescriptions: New celecoxib [Celebrex] 200 mg Capsule 200 mg PO DAILY Qty: 30 RF: 0 sennosides [senna] 8.6 mg Tablet 17.2 mg PO BEDTIME PRN (Reason: Constipation) Qty: 30 RF: 0 acetaminophen 325 mg Tablet 650 mg PO Q6HR Qty: 30 RF: 0 gabapentin [Neurontin] 600 mg Tablet 600 mg PO TID Qty: 90 RF: 0 polyethylene glycol 3350 17 gram Powder In Packet 17 gm PO DAILY Qty: 1 RF: 0 tramadol 50 mg Tablet 100 mg PO QID PRN (Reason: Pain, Moderate (4-6)) Qty: 60 RF: 0 docusate sodium [DOK] 100 mg Capsule 100 mg PO BID Qty: 60 RF: 0 Continued polyethylene glycol 3350 [Miralax] 17 gram/dose powder 8.5 gram PO DAILY PRN (Reason: constipation) Qty: 119 RF: 0 Discontinued ondansetron HCl [Zofran] 4 mg tablet 4 mg PO Q8-12H PRN (Reason: Nausea) Qty: 10 RF: 0 ibuprofen 200 mg capsule 600 mg PO Q6H PRN (Reason: pain) Qty: 60 RF: 0 oxycodone 5 mg capsule 5 mg PO Q4-6H PRN (Reason: pain) Qty: 30 RF: 0 meloxicam [Mobic] 7.5 mg tablet 7.5 mg PO DAILY Qty: 14 RF: 0 Follow up/Referrals: Kael Aguilar MD [Physician] - 1 Week Ariana Billings DO [Primary Care Provider] - Provider Discharge Instructions Diet: Diet as Tolerated Activity: Activity as tolerated Visit Report/Discharge Packet Instructions: DI for Orchitis, How to Create a Suicide Prevention Safety Plan Discharge Data Primary Care Provider: Ariana Billings Discharges patient from system. Discharge Date/Time: 07/23/19 17:45 Quality VTE Deep Vein Thrombosis/Pulmonary Embolism Present on Admission: No
[2019-07-23] MEDS: CELECOXIB 200 MG CAPSULE PO (11:59)
--- NOTE | 2019-07-23 12:47 | PC.NURSE ---
AM Shift pt AO and IND in room. pt reported 9/10 pain at start of shift (groin and migraine) and currently reporting 8/10 pain (in groin area), Ultram resolved migraine pain. Mother at bedside and advocating for pt needs. pt is expressing anger and frustrations with lack of answers and states that he is not drug seeking but wants answers to why he is in so much pain. Incision area is open to air, no erythema noted. Scrotum area has mild swelling, painful to the touch, no discolorations. Decreased appetite and communicated to Dr. Acosta that if he goes home he may commit suicide. Pending discharge home has been suspended and binder caser is made aware (and started conversation with mother).
[2019-07-23 13:00] VITALS: BP 156/82; PULSE 94; RESP 18; O2SAT 98
--- NOTE | 2019-07-23 16:08 | CM.SWNOTE ---
Social Work Note: This RV SERVICE TECHNICIAN requested by Dr Aguilar and Dr Acosta to attend a family conference w/pt and his mom Angélica this morning. Pt presents s/p recent hernia surgery and mesh placement complicated by ongoing and intractable pain, etiology of pain has not been identified during this hospitalization despite multiple provider consultations, scans and ongoing lab work. Dr Acosta and Dr Aguilar reviewed pt's medical course at and discussed medically clearing pt for return home today. Mom Angélica was allowed time to express her frustration about pt's reputation as a drug seeker and she explained she disagreed with this assessment. Angélica reviews the last few weeks at home w/pt and reiterates that pt has pain that needs to be addressed..she continues to wonder what is wrong with her son? Dr Aguilar admits that he does not have an explanation for pt's pain and the senior surgeon he has consulted advised not to open that abd. site up for at least 6 mo to allow time for healing and to decrease risk of infection. Dr Aguilar and Dr Acosta reiterate that they have tried what they can to identify and treat pt's ongoing scrotal pain. Pt sitting in chair and has his head down on his bedside table, he complains of a horrible migraine and Angélica confirms when pt has injury pain he gets a migraine quite easily. Pt has h/o multiple injuries d/t skateboarding. Pt and mom Angélica continue to ask what's next? and pt begins to get increasingly frustrated. Angélica admits to this RV SERVICE TECHNICIAN she is scared that pt will leave her home and do something out of character d/t the desperation he feels sec to unrelenting pain. Pt speaks up and admits he doesn't have anything to live for and will probably take himself off this earth once out of here. This RV SERVICE TECHNICIAN requested medical providers leave for further MH assessment. Pt requests his mom stay in . Pt continues to keep his head down throughout further questioning. He admits to being done and says he has always questioned his existence and his recent pain has brought it all to the surface. Pt is angry and will not safety plan with this RV SERVICE TECHNICIAN or answer further questions about SI or plan. No prior suicide attempts per mom. Pt explains to this RV SERVICE TECHNICIAN that I have nothing to live for and mentions a recent break up from a gf and h/o injuries making so that he can not skateboard. Pt states multiple times that skateboarding is the only thing now that I have to live for and I don't even have that. Pt unable to engage in any goal directed conversation w/either this RV SERVICE TECHNICIAN or his mom. This RV SERVICE TECHNICIAN requested Dr Acosta ask for a psychiatric eval and this wasn't available today. Discussed again w/ Dr Acosta and she suggests DCR be dispatched. This RV SERVICE TECHNICIAN placed this call and DCR Jeannie Ling# [phone] called to inquire further about this 19 yo. Had lengthy conversation w/ Jeannie and she reviewed a few ideas for further conversation w/pt and discussion about less restrictive options. This RV SERVICE TECHNICIAN spoke w/pt's mom Angélica outside of pt's room, w/pt's permission, and had lengthy conversation about pt and his history of impulsive and oppositional behavior, also discussed strengths and the times when pt was excelling and happy go miky. Angélica discussed how overwhelmed pt currently is and that she understood why her son was so frustrated today but she was hopeful that another visit from this RV SERVICE TECHNICIAN might help avoid a detainment to a facility that would make things much worse. Met again w/pt and mom, w/pt's permission. Pt looking much better after Tramadol dose, migraine gone and pt able to look up and engage w/this RV SERVICE TECHNICIAN. Pt states immediately that he was sorry and he is not going to hurt himself. He states he is impulsive and he admits to feeling really angry and overwhelmed by the thought that he will live w/this pain and never be able to skateboard again. Pt makes good eye contact and is very eloquent and insightful. Pt able to engage in safety kaitlynn and once DC home w/mom and dad, he states he will commit to using the following coping strategies if he begins to feel overwhelmed and/or has thoughts of hurting himself: calling a friend and family to talk about frustration, drawing/painting/coloring, calling [facility] crisis line if needed. This RV SERVICE TECHNICIAN provided brief supportive measures w/pt and he was receptive to listening to validation/normalization of current emotional state. Pt admitted to life long feelings of alienation and thinks he might benefit from seeing a psychiatrist and counselor to discuss medication and coping strategies for handling severe anxiety. Pt remains very concerned but this afternoon seems more hopeful things might improve . This RV SERVICE TECHNICIAN felt after above conversation that pt was safe to DC home w/his mom and family. He denied current suicidal ideation and plan. He gave this RV SERVICE TECHNICIAN permission to arrange a call from [facility] this evening at home to k in with him; a supportive MH professional could be dispatched to his home if necessary, number also provided to mom Angélica for her to use as needed. This team could also be utilized to arrange f/u MH appts. Updated Dr Acosta and updated DCR Jeannie, all agree to plan and DCR dispatch cancelled. P: DC home w/supportive family, close medical outpt f/u and [facility] f/u this evening to k in w/pt re: suicidal ideation today sec. to intractable physical pain and recent environmental/emotional stressors. All agreeable to this plan. JIMENEZ Chisholm
[2019-07-23 16:28] VITALS: BP 161/95; PULSE 76; RESP 18; TEMP 36.8; O2SAT 99
--- NOTE | 2019-07-23 17:54 | PC.NURSE ---
Pt discharged by MD. Discharge packet and education provided to pt and mother. Pt and mother verbalized instructions of all. Scripts provided. Pt transferred to private vehicle via w/c chair in stable condition with all personal belongings.
== END 2019-07-23 17:45 | disposition home or self-care (01) | DRG 863 ==
LOC: ED 20:36 → AC 07-17 03:47
PROVIDERS: Internal Medicine; Nurse Practitioner Adult Health; Specialist; Admitting Provider Internal Medicine; Emergency Provider Emergency Medicine; PCP Family Medicine; Visit Provider Surgery
DX: T81.41XA Infection following a procedure, superficial incisional surgical site, initial encounter (principal); L03.314 Cellulitis of groin; K59.03 Drug induced constipation; T40.2X5A Adverse effect of other opioids, initial encounter; G89.18 Other acute postprocedural pain; N45.3 Epididymo-orchitis
CPT/HCPCS: 36415; 36591; 72193; 74177; 76870; 80048; 81001; 81003; 83605; 84145; 85025; 87040; 87491; 87591; 94762; 96365; 96375; 96376; 97116; 97161; 97530; 99283; 99285; J0696; J1170; J1885; J1956; J2405; J2920; J2930; Q9967

== ENCOUNTER 2022-06-09 21:41 | Emergency (ER) | payer OTHER, MEDICAID, SELFPAY ==
[2022-06-09 21:47] VITALS: BP 156/98; PULSE 104; RESP 18; O2SAT 96; BMI 21.4
--- NOTE | 2022-06-09 21:54 | DI.RAD.S_ITS ---
PROCEDURE: XR FOOT LT MIN 3V INDICATIONS: injury TECHNIQUE: 3 views of the foot were acquired. COMPARISON: None. FINDINGS: Bones: No fractures or dislocations. No suspicious bony lesions. Soft tissues: No tibiotalar joint effusion. Achilles tendon appears normal. IMPRESSION: 1. No fracture or dislocation. Dictated by: Milan Silva M.D. on 06/09/2022 at 22:35 Approved by: Milan Silva M.D. on 06/09/2022 at 22:36
[2022-06-09] MEDS: IBUPROFEN 400 MG TABLET 800 MG PO (22:37)
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
--- NOTE | 2022-06-09 22:47 | PC.NURSE ---
Pt refused ibuprofen. Wanted something better for pain control. Pt states ibuprofen never works for him. Tylenol was offered, pt refused. Pt stated He needed to leave he wanted results now. Pt stated his pain was terrible and uncontrolled and said that he would take the ibuprofen but it wouldnt help and he would need something stronger. Pt threatened to leave without results multiple times but did not leave. Pt also admitted to drinking alcohol and he was drunk and still feeling pain so that meant he needed something stronger. Pt was walking out weight bearing with a limp and the dr notified him it was not broken. Pt requested an broderick wrap but refused to return to room and wanted it placed by exit door while he was standing. Pt decided not to wait and left withut paperwork.
== END 2022-06-09 22:45 | disposition home or self-care (01) ==
PROVIDERS: Emergency Provider Emergency Medicine; PCP Family Medicine
DX: S93.602A Unspecified sprain of left foot, initial encounter (principal); X50.1XXA Overexertion from prolonged static or awkward postures, initial encounter
CPT/HCPCS: 73630; 99283